=== PATIENT | female | born 1995 | race Caucasian/White ===

== ENCOUNTER 2017-03-28 11:58 | Emergency (ER) | payer BC ==
[2017-03-28 12:06] VITALS: BP 146/88
[2017-03-28] MEDS ORDERED: Ibuprofen 600 MG Tab PO ONE (12:11)
--- NOTE | 2017-03-28 12:18 | EDM.PDOC ---
ED HPI GENERAL MEDICAL PROBLEM - General Chief Complaint: Lower Extremity Injury/Pain Stated Complaint: Right ankle injury Time Seen by Provider: 03/28/17 12:00 Source of Information: Reports: Patient, RN Notes Reviewed History Limitations: Reports: No Limitations - History of Present Illness INITIAL COMMENTS - FREE TEXT/NARRATIVE: 21 year old female presents to the ED with pain and swelling to the right ankle. She says she stepped off a curb and twisted her ankle, causing her to fall down. She has swelling to the lateral aspect of her ankle. She is able to bear some weight but says it's very painful. No numbness, tingling or weakness. No additional injury. Denies possibility of . Right Ankle Pain Score (Numeric/FACES): 8 - Related Data Allergies Allergy/AdvReac Type Severity Reaction Status Date / Time No Known Allergies Allergy Verified 03/28/17 12:06 Home Meds: Home Meds Non-Formulary Medication [NF Drug] 1 tab PO DAILY 03/28/17 [History] Past Medical History - Past Health History Medical/Surgical History: Denies Medical/Surgical History Social & Family History - Tobacco Use Smoking Status *Q: Never Smoker Second Hand Smoke Exposure: No - Caffeine Use Caffeine Use: Reports: Soda - Recreational Drug Use Recreational Drug Use: No Review of Systems - Review of Systems Review Of Systems: See Below Musculoskeletal: Reports: Joint Pain, Joint Swelling Skin: Reports: No Symptoms. Denies: Wound Neurological: Reports: No Symptoms. Denies: Numbness, Tingling ED EXAM, GENERAL - Physical Exam Exam: See Below Exam Limited By: Uncooperative General Appearance: WD/WN, Anxious, Moderate Distress Respiratory/Chest: No Respiratory Distress, Lungs Clear Cardiovascular: Regular Rate, Rhythm Extremities: Other (Small amount of bruising just anterior to the lateral malleolous. She has no bony point tenderness to either malleolous. She has no tenderness to her mid-foot or toes. The pain is mostly just anterior to the lateral malleolous where she is swollen. No obvious deformity. Neurovascular status intact. ) Neurological: Alert, Normal Cognition, No Motor/Sensory Deficits Skin Exam: Warm, Dry, Intact Course - Vital Signs Last Recorded V/S: Last Vital Signs Temp 97.5 F 03/28/17 12:02 Pulse 79 03/28/17 12:02 Resp 18 03/28/17 12:02 BP 146/88 H 03/28/17 12:02 Pulse Ox 98 03/28/17 12:02 - Orders/Labs/Meds Orders: Active Orders 24 hr Category Date Time Status Ankle Min 3V Rt [CR] Stat Exams 03/28/17 12:12 Ordered Meds: Medications Discontinued Medications Generic Name Dose Route Start Last Admin Trade Name Leonor PRN Reason Stop Dose Admin Ibuprofen 600 mg 03/28/17 12:11 03/28/17 12:43 Motrin PO 03/28/17 12:12 600 mg ONETIME ONE Administration - Re-Assessments/Exams Free Text/Narrative Re-Assessment/Exam: X-ray is negative for bony abnormality. There is a bone spur to the posterior aspect of the ankle joint but otherwise no fractures appreciated. Radiologist report is pending. Patient placed in antonina wrap. She has crutches at home. Discharge instructions as documented. Departure - Departure Time of Disposition: 12:58 Disposition: Home, Self-Care 01 Condition: Good Clinical Impression: Ankle sprain Qualifiers: Encounter type: initial encounter Involved ligament of ankle: unspecified ligament Laterality: right Qualified Code(s): S93.401A - Sprain of unspecified ligament of right ankle, initial encounter - Discharge Information Referrals: PCP,Not In Area [Primary Care Provider] - Forms: ED Department Discharge Additional Instructions: Rest, ice and elevate Crutches and antonina wrap as tolerated Weight bearing as tolerated Ibuprofen 600mg every 8 hours as needed for pain Follow-up with Dr. Evans in two weeks if not improved. Call [phone] to schedule - My Orders Last 24 Hours: My Active Orders 03/28/17 12:12 Ankle Min 3V Rt [CR] Stat - Assessment/Plan Last 24 Hours: My Active Orders 03/28/17 12:12 Ankle Min 3V Rt [CR] Stat
--- NOTE | 2017-03-29 10:07 | CR ---
Right ankle: Four views of the right ankle were obtained. Minimal plantar spur is seen. Ankle mortise is symmetric. Slight cortical fragments are seen off the dorsal and anterior talus compatible with small cortical avulsion injury. No additional fracture or other bony abnormality is seen. Impression: 1. Small cortical avulsion fractures off the dorsal and anterior talus. 2. No additional abnormality is noted on right ankle exam. Diagnostic code #3
== END 2017-03-28 13:10 | disposition home or self-care (01) ==
LOC: JD.ED 11:58
DX: S92.151A Displaced avulsion fracture (chip fracture) of right talus, initial encounter for closed fracture (principal); S93.401A Sprain of unspecified ligament of right ankle, initial encounter; X50.0XXA Overexertion from strenuous movement or load, initial encounter
CPT/HCPCS: 73610; 99284; A9270; 99283

== ENCOUNTER 2017-08-29 23:36 | Emergency (ER) | payer BC ==
[2017-08-29 23:46] VITALS: BP 148/88
--- NOTE | 2017-08-30 01:07 | EDM.PDOC ---
ED HPI GENERAL MEDICAL PROBLEM - General Chief Complaint: Lower Extremity Injury/Pain Stated Complaint: INJURED LEFT ANKLE Time Seen by Provider: 08/30/17 00:17 Source of Information: Reports: Patient History Limitations: Reports: No Limitations - History of Present Illness INITIAL COMMENTS - FREE TEXT/NARRATIVE: The patient states that she was going downstairs around 23:10, when she slipped and fell approximately one stair level, injuring the lateral aspect of her left foot. She is otherwise uninjured. No prior left foot injury. The patient's PCP is Maria Ines Brand. Left Ankle Pain Score (Numeric/FACES): 7 - Related Data Allergies Allergy/AdvReac Type Severity Reaction Status Date / Time No Known Allergies Allergy Verified 03/28/17 12:06 Home Meds: Home Meds Non-Formulary Medication [NF Drug] 1 tab PO DAILY 03/28/17 [History] Past Medical History Endocrine/Metabolic History: Reports: Obesity/BMI 30+ Social & Family History - Tobacco Use Smoking Status *Q: Never Smoker Second Hand Smoke Exposure: No - Caffeine Use Caffeine Use: Reports: Coffee - Alcohol Use Alcohol Use History: No - Recreational Drug Use Recreational Drug Use: No - Living Situation & Occupation Living situation: Reports: Single, Other ([employer]) Occupation: Student ([employer]) Review of Systems - Review of Systems Review Of Systems: ROS reveals no pertinent complaints other than HPI. ED EXAM, GENERAL - Physical Exam Exam: See Below Exam Limited By: No Limitations General Appearance: Alert, WD/WN, No Apparent Distress Extremities: Other (Mild swelling to the dorsolateral aspect of the left foot, without ecchymosis, erythema, or abrasion. The area of swelling is tender to palpation. Neurovascular status of the left lower extremity is intact.) Course - Vital Signs Last Recorded V/S: Last Vital Signs Temp 37.2 C 08/29/17 23:43 Pulse 87 08/29/17 23:43 Resp 19 08/29/17 23:43 BP 148/88 H 08/29/17 23:43 Pulse Ox 98 08/29/17 23:43 - Re-Assessments/Exams Free Text/Narrative Re-Assessment/Exam: 08/30/17 01:02 4-view radiographs of the left ankle appear to be normal. No bony injury, such as fracture or dislocation identified. Formal read per the Radiologist pending. Departure - Departure Time of Disposition: 01:02 Disposition: Home, Self-Care 01 Condition: Good Clinical Impression: Contusion of left foot - Discharge Information Referrals: Maria Ines Brand PA [Primary Care Provider] - Forms: ED Department Discharge Additional Instructions: You were seen in the emergency room after slipping while going down stairs and injuring your left foot. Workup in the ER included x-rays of the foot, which are normal. No broken bones are seen. You have contused (bruised) your left foot. Take [id number] Tylenol or ibuprofen as needed for discomfort. Elevate and ice your left foot as much as possible over the next 2 days. If any other problems, please do not hesitate to return to the ER.
--- NOTE | 2017-08-30 07:51 | CR ---
Left ankle: Four views of left ankle were obtained. Comparison: No prior left ankle study. Ankle mortise is symmetric. No fracture, dislocation or other bony abnormality is identified. Impression: 1. No abnormality is identified on left ankle exam. Diagnostic code #1
== END 2017-08-30 01:19 | disposition home or self-care (01) ==
LOC: JD.ED 23:36
DX: S90.32XA Contusion of left foot, initial encounter (principal); Z79.899 Other long term (current) drug therapy; W10.9XXA Fall (on) (from) unspecified stairs and steps, initial encounter
CPT/HCPCS: 73600-26-LT; 73600-LT; 99283

== ENCOUNTER 2017-09-16 20:00 | Emergency (ER) | payer BC ==
[2017-09-16 20:13] VITALS: BP 142/86
[2017-09-16] MEDS ORDERED: Hyoscyamine 0.125 MG Tab.SL SL ONE (20:21)
[2017-09-16] MEDS ORDERED: HYDROmorphone 0.5 MG/0.5 ML SYRINGE IVPUSH ONE (20:21)
[2017-09-16] MEDS ORDERED: Metoclopramide 10 MG/2 ML SDV IVPUSH ONE (20:22)
--- NOTE | 2017-09-16 20:24 | EDM.PDOC ---
ED HPI GENERAL MEDICAL PROBLEM - General Chief Complaint: Abdominal Pain Stated Complaint: BACK AND ABDOMINAL PAINS Time Seen by Provider: 09/16/17 20:17 Source of Information: Reports: Patient History Limitations: Reports: No Limitations - History of Present Illness INITIAL COMMENTS - FREE TEXT/NARRATIVE: 21-year-old female presents to the ED with a 2 hour history of sudden onset of severe epigastric right upper quadrant abdominal pain that radiates through to her right back in between her shoulder blades. Hurts to take a deep breath. Sloppy [employer] and noodles for supper approximate 3 hours ago. Socially nausea without any vomiting. Bowel function was normal yesterday no BM today. No previous abdominal surgery. No previous similar type pain. Due to history of remote renal colic last year. Denies any fever or chills. Pain is described as constant with a mild colicky component. Onset: Today Onset Date: 09/16/17 Onset Time: 18:30 Duration: Minutes: Location: Reports: Abdomen, Radiates to (Epigastrium right upper quadrant of the artery through to her mid back) Quality: Reports: Ache, Pressure, Other (Slight colicky component to the pain) Severity: Severe (Grades the pain as 7 out of 10.) Improves with: Reports: None Worsens with: Reports: None Context: Denies: Activity, Exercise, Lifting, Sick Contact, Trauma, Other Associated Symptoms: Reports: Loss of Appetite, Nausea/Vomiting (Nausea with no vomiting). Denies: No Other Symptoms, Confusion, Chest Pain, cough w sputum, Diaphoresis, Fever/Chills, Headaches, Malaise, Rash, Seizure, Shortness of Breath, Syncope, Weakness Treatments HAND MODEL: Reports: Acetaminophen Abdomen Pain Score (Numeric/FACES): 8 - Related Data Allergies Allergy/AdvReac Type Severity Reaction Status Date / Time No Known Allergies Allergy Verified 03/28/17 12:06 Past Medical History - Past Health History Medical/Surgical History: Denies Medical/Surgical History Endocrine/Metabolic History: Reports: Obesity/BMI 30+ Social & Family History - Tobacco Use Smoking Status *Q: Never Smoker Second Hand Smoke Exposure: No - Caffeine Use Caffeine Use: Reports: Coffee - Recreational Drug Use Recreational Drug Use: No - Living Situation & Occupation Living situation: Reports: Single, Other ([employer]) Occupation: Student ([employer]) ED ROS GENERAL - Review of Systems Review Of Systems: See Below Constitutional: Reports: Decreased Appetite. Denies: Fever, Chills, Malaise, Weakness, Fatigue, Weight Loss HEENT: Reports: No Symptoms Respiratory: Reports: No Symptoms Cardiovascular: Reports: No Symptoms Endocrine: Reports: No Symptoms GI/Abdominal: Reports: Abdominal Pain, Nausea (See history of present illness). Denies: Vomiting Musculoskeletal: Reports: Back Pain Skin: Reports: No Symptoms (Some pain originating the abdomen rating to to her infrascapular area of her mid lower back.) Neurological: Reports: No Symptoms Psychiatric: Reports: No Symptoms Hematologic/Lymphatic: Reports: No Symptoms ED EXAM, GI/ABD - Physical Exam Exam: See Below Exam Limited By: No Limitations General Appearance: Alert, WD/WN, Mild Distress Eyes: Bilateral: Pale Conjunctiva (No jaundice.) Cardiovascular: Normal Peripheral Pulses, Regular Rate, Rhythm, No Edema, No Gallop, No Murmur, No Rub GI/Abdominal Exam: Soft (Twice in bowel sounds throughout.), Tender, Abnormal Bowel Sounds. No: Guarding (Tenderness right upper quadrant. With a positive Calderon sign.), Rigid, Rebound Back Exam: Normal Inspection, Full Range of Motion. No: CVA Tenderness (L), CVA Tenderness (R) Extremities: Normal Inspection, Normal Range of Motion, Non-Tender, No Pedal Edema Neurological: Alert, Oriented, CN II-XII Intact, Normal Cognition, Normal Gait, No Motor/Sensory Deficits Psychiatric: Normal Affect, Normal Mood Skin Exam: Warm, Dry, Intact, Normal Color, No Rash Course - Vital Signs Last Recorded V/S: Last Vital Signs Temp 35.8 C 09/16/17 20:09 Pulse 88 09/16/17 20:09 Resp 18 09/16/17 20:09 BP 142/86 H 09/16/17 20:09 Pulse Ox 100 09/16/17 20:09 - Orders/Labs/Meds Orders: Active Orders 24 hr Category Date Time Status Abdomen 1V Flat [CR] Stat Exams 09/16/17 20:23 Taken Abdomen Pelvis wo Cont [CT] Stat Exams 09/16/17 22:00 Taken URINALYSIS W/MICROSCOPIC [UA W/MICROSCOPIC] [URIN] Stat Lab 09/16/17 21:55 Results Sodium Chloride 0.9% [Normal Saline] 1,000 ml Med 09/16/17 20:30 Active IV ASDIRECTED Medication Orders Sodium Chloride (Normal Saline) 1,000 mls @ 150 mls/hr IV ASDIRECTED ANGELIQUE Last Admin: 09/16/17 20:29 Dose: 150 mls/hr Labs: Laboratory Tests 09/16/17 09/16/17 09/16/17 Range/Units 20:25 20:25 20:25 WBC 16.68 H (3.98-10.04) K/mm3 RBC 4.93 (3.98-5.22) M/mm3 Hgb 13.9 (11.2-15.7) gm/L Hct 41.6 (34.1-44.9) % MCV 84.4 (79.4-94.8) fl MCH 28.2 (25.6-32.2) pg MCHC 33.4 (32.2-35.5) g/dl RDW Std Deviation 37.3 (36.4-46.3) fL Plt Count 370 H (182-369) K/mm3 MPV 9.8 (9.4-12.3) fl Neutrophils % (Manual) 67 H (40-60) % Band Neutrophils % 1 (0-10) % Lymphocytes % (Manual) 27 (20-40) % Atypical Lymphs % 0 % Monocytes % (Manual) 3 (2-10) % Eosinophils % (Manual) 1 (0.7-5.8) % Basophils % (Manual) 1 (0.1-1.2) Platelet Estimate Adequate Plt Morphology Comment Normal RBC Morph Comment Normal Sodium 142 (136-145) mEq/L Potassium 3.8 (3.5-5.1) mEq/L Chloride 106 (98-107) mEq/L Carbon Dioxide 23 (21-32) mEq/L Anion Gap 16.8 H (5-15) BUN 8 (7-18) mg/dL Creatinine 0.8 (0.55-1.02) mg/dL Est Cr Clr Drug Dosing 100.94 mL/min Estimated GFR (MDRD) > 60 (>60) mL/min BUN/Creatinine Ratio 10.0 L (14-18) Glucose 119 H (74-106) mg/dL Calcium 8.8 (8.5-10.1) mg/dL Total Bilirubin 0.3 (0.2-1.0) mg/dL AST 45 H (15-37) U/L ALT 67 H (14-59) U/L Alkaline Phosphatase 65 (46-116) U/L C-Reactive Protein 1.0 (<1.0) mg/dL Total Protein 7.2 (6.4-8.2) g/dl Albumin 3.6 (3.4-5.0) g/dl Globulin 3.6 gm/dL Albumin/Globulin Ratio 1.0 (1-2) Amylase 32 (25-115) U/L HCG, Qual Negative (NEGATIVE) Urine Color (Yellow) Urine Appearance (Clear) Urine pH (5.0-8.0) Ur Specific [place] (1.005-1.030) Urine Protein (Negative) Urine Glucose (UA) (Negative) Urine Ketones (Negative) Urine Occult Blood (Negative) Urine Nitrite (Negative) Urine Bilirubin (Negative) Urine Urobilinogen (0.2-1.0) Ur Leukocyte Esterase (Negative) 09/16/17 Range/Units 21:55 WBC (3.98-10.04) K/mm3 RBC (3.98-5.22) M/mm3 Hgb (11.2-15.7) gm/L Hct (34.1-44.9) % MCV (79.4-94.8) fl MCH (25.6-32.2) pg MCHC (32.2-35.5) g/dl RDW Std Deviation (36.4-46.3) fL Plt Count (182-369) K/mm3 MPV (9.4-12.3) fl Neutrophils % (Manual) (40-60) % Band Neutrophils % (0-10) % Lymphocytes % (Manual) (20-40) % Atypical Lymphs % % Monocytes % (Manual) (2-10) % Eosinophils % (Manual) (0.7-5.8) % Basophils % (Manual) (0.1-1.2) Platelet Estimate Plt Morphology Comment RBC Morph Comment Sodium (136-145) mEq/L Potassium (3.5-5.1) mEq/L Chloride (98-107) mEq/L Carbon Dioxide (21-32) mEq/L Anion Gap (5-15) BUN (7-18) mg/dL Creatinine (0.55-1.02) mg/dL Est Cr Clr Drug Dosing mL/min Estimated GFR (MDRD) (>60) mL/min BUN/Creatinine Ratio (14-18) Glucose (74-106) mg/dL Calcium (8.5-10.1) mg/dL Total Bilirubin (0.2-1.0) mg/dL AST (15-37) U/L ALT (14-59) U/L Alkaline Phosphatase (46-116) U/L C-Reactive Protein (<1.0) mg/dL Total Protein (6.4-8.2) g/dl Albumin (3.4-5.0) g/dl Globulin gm/dL Albumin/Globulin Ratio (1-2) Amylase (25-115) U/L HCG, Qual (NEGATIVE) Urine Color Yellow (Yellow) Urine Appearance Clear (Clear) Urine pH 6.5 (5.0-8.0) Ur Specific [place] > or = 1.030 (1.005-1.030) Urine Protein 1+ H (Negative) Urine Glucose (UA) Negative (Negative) Urine Ketones Trace H (Negative) Urine Occult Blood 1+ H (Negative) Urine Nitrite Negative (Negative) Urine Bilirubin Negative (Negative) Urine Urobilinogen 0.2 (0.2-1.0) Ur Leukocyte Esterase Negative (Negative) Meds: Medications Generic Name Dose Route Start Last Admin Trade Name Freq PRN Reason Stop Dose Admin Sodium Chloride 1,000 mls @ 150 mls/hr 09/16/17 20:30 09/16/17 20:29 Normal Saline IV 150 mls/hr ASDIRECTED ANGELIQUE Administration Discontinued Medications Generic Name Dose Route Start Last Admin Trade Name Leonor PRN Reason Stop Dose Admin Hydromorphone HCl 0.5 mg 09/16/17 20:21 09/16/17 20:32 Dilaudid IVPUSH 09/16/17 20:22 0.5 mg ONETIME ONE Administration Hyoscyamine 0.125 mg 09/16/17 20:21 09/16/17 20:30 Hyomax-Sl SL 09/16/17 20:22 0.125 mg ONETIME ONE Administration Magnesium Citrate 240 ml 09/16/17 21:52 09/16/17 22:04 Citrate Of Magnesia PO 09/16/17 21:53 240 ml ONETIME ONE Administration Metoclopramide HCl 10 mg 09/16/17 20:22 09/16/17 20:30 Reglan IVPUSH 09/16/17 20:23 10 mg ONETIME ONE Administration - Radiology Interpretation Free Text/Narrative:: 21-year-old female presents the ED with a 2 hour history of early sudden onset epigastric right upper quadrant abdominal pain that radiates through to her infrascapular are back. Does hurt to take a deep breath. Pain is constant with these slight colicky component. No previous similar type pains. She doesn't have any history of gallstones. Has a history of renal stones in the past. Examination reveals tenderness right upper quadrant abdomen with a positive Calderon's sign suggestive of gallbladder disease. Plan Levsin 0.125 mg sublingual. IV will be established normal saline at 150 mils per hour. Given Dilaudid 0.5 mg IV with Reglan 10 mg IV for nausea relief. KUB to be done. Routine labs to include a serum amylase. Urinalysis when one becomes available. - Re-Assessments/Exams Free Text/Narrative Re-Assessment/Exam: 09/16/17 21:12 patient reports pain is markedly improved. Labs are still pending and she has not gone to x-ray yet. 09/16/17 21:27 Total white count is 16.68 with a minimal left shift of 67% neutrophils 1% bands reported. Hemoglobin is 13.9 with hematocrit of 41.6. Chemistry is normal other than a mildly elevated anion gap at 16.8. BUN is 8 with a creatinine of 0.8. Glucose is 119. AST is 45 ALT is 67 bilirubin 0.3 alkaline phosphatase normal at 65. C-reactive protein is 1.08 hCG was negative. She will be going to x-ray shortly. 09/16/17 21:42 KUB reveals a large amount of stool throughout the entire right hemicolon and portions of the initial transverse colon compatible with constipation. This is the most likely etiology of her pain. Labs showed no light on any other etiology other than an elevated white count which is felt to be a stress response. She has not yet voided. 09/16/17 22:01 analysis shows 3+ RBCs. I will therefore have CT of the abdomen and pelvis performed per renal protocol to rule out a kidney stone at the UPJ. Repeat examination reveals very quiet sent bile sounds. Tenderness in the right upper quadrant has now resolved. 09/16/17 22:30 CT scan of the abdomen has been completed. It reveals no evidence of any renal stones in the renal parenchyma or any obstructing stones in the ureters. Gallbladder also appears to be healthy without stones. The pancreas and spleen appear to be within normal limits. Again large amount of stool is appreciated throughout the right hemicolon and the first half of the transverse colon which appears to be the cause of her pain. Uterus and ovaries are easily visible visible and are normal she will therefore be discharged home on Citroma using 8 ounces by mouth with 4 ounces of juice of choice once to provide bowel cleanse either take it when she gets home or when she wakes up later tomorrow morning. Departure - Departure Time of Disposition: 22:31 Disposition: Home, Self-Care 01 Condition: Fair Clinical Impression: Constipation by delayed colonic transit Abdominal pain Qualifiers: Abdominal location: right upper quadrant Qualified Code(s): R10.11 - Right upper quadrant pain - Discharge Information Referrals: Maria Ines Brand PA [Primary Care Provider] - Forms: ED Department Discharge Additional Instructions: Evaluation the emergent today in regards to sudden onset of severe right upper quadrant abdominal pain associated with nausea without vomiting. This occurred within a few hours of eating supper. Pain is described as constant with intermittent colicky component and radiated through to her mid back. Examination revealed bowel sounds to be fairly quiet sent. Tenderness was localized to the right upper quadrant suggesting possible gallbladder attack. You're given Levsin 0.125 mg under the tongue to see if fluid alleviate the discomfort and it did help perhaps some. Subtotal you're given intravenous Dilaudid and Reglan to ease pain and nausea. Lab tests performed were all within normal limits. The urinalysis eventually did reveal 3+ blood in the urine however. The suggested the possibility of recurrence of kidney stone. X- ray of the abdomen revealed increased stool throughout the right hemicolon and the first half of the transverse colon in the right upper quadrant. CT of the abdomen was performed and this does not show any evidence of gallstones or stones within the kidney tissues or obstructing stones in the drainage tubes from the kidneys. He does confirm a large amount of stool throughout the right hemicolon and right upper transverse colon across her upper abdomen. Was therefore constipation is occurred likely from taking narcotics last week when you had 2 wisdom teeth out. Treatment is therefore magnesium citrate or Citroma 8 ounces by mouth mixed with 4-5 ounces of juice of choice by mouth once. Should be followed by 8-12 ounces of water or other juices in the next hour. Bowels will usually start work in 1-2 hours and will offer him work through 4 times ending with some degree of diarrhea. This should alleviate your pain completely. Still present return to medical care for further evaluation. - My Orders Last 24 Hours: My Active Orders 09/16/17 20:23 Abdomen 1V Flat [CR] Stat 09/16/17 20:30 Sodium Chloride 0.9% [Normal Saline] 1,000 ml IV ASDIRECTED 09/16/17 21:55 URINALYSIS W/MICROSCOPIC [UA W/MICROSCOPIC] [URIN] Stat 09/16/17 22:00 Abdomen Pelvis wo Cont [CT] Stat - Assessment/Plan Last 24 Hours: My Active Orders 09/16/17 20:23 Abdomen 1V Flat [CR] Stat 09/16/17 20:30 Sodium Chloride 0.9% [Normal Saline] 1,000 ml IV ASDIRECTED 09/16/17 21:55 URINALYSIS W/MICROSCOPIC [UA W/MICROSCOPIC] [URIN] Stat 09/16/17 22:00 Abdomen Pelvis wo Cont [CT] Stat
[2017-09-16] MEDS ORDERED: Sodium Chloride 0.9% 1,000 ML IV SCH (20:30)
[2017-09-16] MEDS ORDERED: Magnesium Citrate Solution 296 ML Bottle PO ONE (21:52)
--- NOTE | 2017-09-17 07:26 | CR ---
Abdomen: Supine view of the abdomen was obtained. Comparison: No prior abdominal x-ray. Bowel gas pattern appears normal. No abnormal calcifications or soft tissue abnormality is seen. Bony structures are unremarkable. Impression: 1. No abnormality is identified on supine abdominal x-ray. Diagnostic code #1
--- NOTE | 2017-09-17 07:26 | CT ---
CT abdomen and pelvis Technique: Multiple axial sections were obtained from above the dome of the diaphragm inferiorly through the pubic symphysis. Intravenous and oral contrast was not utilized. Study has been performed as a ureteral stone protocol. Comparison: No prior CT abdomen or pelvis exam is available. Findings: Kidneys show no abnormal calcifications. No hydronephrosis is seen. No abnormal calcifications are seen along the course of the ureters. Visualized lung bases show nothing acute. Noncontrast appearance of the liver and spleen shows no discrete abnormality. Gallbladder contains no calcified gallstones. Pancreas is within normal limits. Adrenal glands show no nodule. Aorta shows no aneurysmal dilatation. No retroperitoneal adenopathy or mesenteric abnormalities are seen. Appendix is seen which appears normal. No pelvic mass or adenopathy is identified. No free fluid or inflammatory change is seen. Bone window settings were reviewed which appear within normal limits for the patient's age. Impression: 1. No renal calculi, ureteral dilatation or ureteral stone is seen. 2. Other portions of the noncontrast CT study of the abdomen and pelvis performed as a ureteral stone protocol appear unremarkable. Diagnostic code #1 Agree with preliminary report issued by [facility] ([facility] preliminary report dictated on 09/16/17, 11:48 PM Central Time)
== END 2017-09-16 22:35 | disposition home or self-care (01) ==
LOC: JD.ED 20:00
DX: K59.01 Slow transit constipation (principal)
CPT/HCPCS: 36415; 74018; 74176; 80053; 81001; 82150; 84703; 85025; 86140; 96361; 96374; 96375; 99285; A9270; J1170; J2765; J7040; 99284

== ENCOUNTER 2019-06-13 10:04 | Emergency (ER) | payer BC ==
[2019-06-13 10:15] VITALS: BP 136/86; PULSE 85
--- NOTE | 2019-06-13 10:28 | EDM.PDOC ---
ED HPI GENERAL MEDICAL PROBLEM - General Chief Complaint: Upper Extremity Injury/Pain Stated Complaint: RT INDEX FINGER Time Seen by Provider: 06/13/19 10:24 Source of Information: Reports: Patient History Limitations: Reports: No Limitations - History of Present Illness INITIAL COMMENTS - FREE TEXT/NARRATIVE: 23-year-old female attends the ED with an acute injury to her right hand. She states that Mukesh yesterday afternoon and punched a wall. Complains of pain persisting in the second MCP joint and inability to make a fist or close her hand. The hand dominant. Denies any other injuries. Denies any possibility of . Onset: Sudden Onset Date: 06/12/19 Onset Time: 14:30 Duration: Hour(s): Location: Reports: Upper Extremity, Right (Rt hand.) Quality: Reports: Ache Severity: Moderate Improves with: Reports: Rest Worsens with: Reports: Movement Context: Reports: Trauma. Denies: Activity, Exercise, Lifting, Sick Contact Associated Symptoms: Reports: No Other Symptoms (Blunt trauma when she punched a wall at home.) Treatments DAY CARE AIDE: Reports: Acetaminophen Right Hand Pain Score (Numeric/FACES): 6 - Related Data Allergies Allergy/AdvReac Type Severity Reaction Status Date / Time No Known Allergies Allergy Verified 06/13/19 10:14 Home Meds: Home Meds . [No Known Home Meds] 06/13/19 [History] Past Medical History - Past Health History Medical/Surgical History: Denies Medical/Surgical History HEENT History: Reports: Impaired Vision Genitourinary History: Reports: Renal Calculus Musculoskeletal History: Reports: Fracture Other Musculoskeletal History: right pinky toe Psychiatric History: Reports: Other (See Below) Other Psychiatric History: asbergers Endocrine/Metabolic History: Reports: Obesity/BMI 30+, Other (See Below) Other Endocrine/Metabolic History: "pre diabetes" Social & Family History - Family History Family Medical History: Noncontributory - Tobacco Use Smoking Status *Q: Never Smoker - Caffeine Use Caffeine Use: Reports: Coffee - Living Situation & Occupation Living situation: Reports: Single, Other ([employer]) Occupation: Student ([employer]) Review of Systems - Review of Systems Review Of Systems: See Below Constitutional: Reports: No Symptoms Eyes: Reports: No Symptoms Ears: Reports: No Symptoms Nose: Reports: No Symptoms Mouth/Throat: Reports: No Symptoms Respiratory: Reports: No Symptoms Cardiovascular: Reports: No Symptoms GI/Abdominal: Reports: No Symptoms Genitourinary: Reports: No Symptoms Skin: Reports: No Symptoms Neurological: Reports: No Symptoms Psychiatric: Reports: No Symptoms ED EXAM, GENERAL - Physical Exam Exam: See Below Exam Limited By: No Limitations General Appearance: Alert, WD/WN, No Apparent Distress, Other Extremities: Other (Examination was limited to the right hand. She does have some swelling over the second MCP joint and the dorsal aspect of the hand in the distribution of the second and third metacarpals. He does not have the ability to close her hand to make a fist.) Neurological: Alert, Oriented, CN II-XII Intact, Normal Cognition, Normal Gait Psychiatric: Normal Affect, Normal Mood Skin Exam: Warm, Dry, Intact, Normal Color, No Rash ED TRAUMA EXTREMITY PROCEDURES - Splinting Right Upper Extremity Splint Site: Short arm Ortho-Glass splint applied to the right side due to fracture of t Pre-Procedure NV Status: Normal Post-Procedure NV Status: Normal Splint Material: Fiberglass Splint Design: Gutter (Radial gutter splint), Other Provider Post-Splint Application NV Check: NV Status Normal Complications: No Course - Vital Signs Last Recorded V/S: Last Vital Signs Temp 36.9 C 06/13/19 10:13 Pulse 85 06/13/19 10:13 Resp 10 L 06/13/19 10:13 BP 136/86 06/13/19 10:13 Pulse Ox 97 06/13/19 10:13 - Orders/Labs/Meds Orders: Active Orders 24 hr Category Date Time Status Hand Comp Min 3V Rt [CR] Stat Exams 06/13/19 10:24 Taken - Radiology Interpretation Free Text/Narrative:: 23-year-old female attends the ED with injury to her right hand after punching a wall yesterday afternoon. Complains of pain primarily in the distribution of the second MCP joint. There is swelling in the MCP joint as well as dorsal aspect of the hand over the second and third metacarpals. She has inability to close her hand or make a fist. Plan x-rays of the right hand to be done. - Re-Assessments/Exams Free Text/Narrative Re-Assessment/Exam: 06/13/19 10:50: X-rays of the right hand reveals a comminuted fracture of the head of the second metacarpal right hand. Position is normal. She will require splinting with an Ortho-Glass splint. 06/13/19 11:08 right second and third fingers were amrit taped together with padding in between the fingers. A radial gutter Ortho-Glass splint was placed on the right hand short arm to maintain immobilization of the fracture for the next 5-6 weeks. Motrin 600 mg every 6 hours needed for pain relief. Departure - Departure Time of Disposition: 11:08 Disposition: Home, Self-Care 01 Condition: Fair Clinical Impression: Fracture of second metacarpal bone of right hand Qualifiers: Encounter type: initial encounter Fracture type: closed Metacarpal location: other portion of metacarpal Fracture of metacarpal bone Qualifiers: Encounter type: initial encounter Metacarpal bone: second - Discharge Information *PRESCRIPTION DRUG MONITORING PROGRAM REVIEWED*: Not Applicable *COPY OF PRESCRIPTION DRUG MONITORING REPORT IN PATIENT NIDIA: Not Applicable Instructions: Cast or Splint Care, Adult, [id number] Referrals: Maria Ines Brand PA [Primary Care Provider] - Forms: ED Department Discharge Additional Instructions: Evaluation the emergency room today in regards to blunt force trauma to the right hand that occurred yesterday afternoon when he punched a wall. X-rays confirm a fracture of the head of the right second metacarpal bone rate were you 're having your pain. Therefore the fracture was immobilized by splinting the second and third fingers together and application of an Ortho-Glass splint to maintain position of this fracture until it can heal over the next 5-6 weeks. You could follow-up with your primary care physician in approximately 5 weeks' time to have the splint removed. Elevate the hand at heart level is much as possible today and tomorrow. Ice pack to the area one half out of every 4 hours today. Motrin 600 mg every 6 hours needed for pain relief. - My Orders Last 24 Hours: My Active Orders 06/13/19 10:24 Hand Comp Min 3V Rt [CR] Stat - Assessment/Plan Last 24 Hours: My Active Orders 06/13/19 10:24 Hand Comp Min 3V Rt [CR] Stat
--- NOTE | 2019-06-16 12:30 | CR ---
Right hand: Four views of the right hand were obtained. Comparison: No prior right hand exam is available. Findings: Joint spaces are preserved. Fracture is identified within the head of the distal second finger. Articular extension is seen into the MCP joint. Alignment remains anatomic. No additional fracture or other bony abnormality is seen. Impression: 1. Nondisplaced fracture involving the head of the distal second metacarpal. 2. No additional abnormality is seen. Diagnostic code #3 This report was dictated in Mountain Standard Time
== END 2019-06-13 11:16 | disposition home or self-care (01) ==
LOC: JD.ED 10:04
DX: S62.300A Unspecified fracture of second metacarpal bone, right hand, initial encounter for closed fracture (principal); E66.9 Obesity, unspecified; Z68.41 Body mass index [BMI] 40.0-44.9, adult; W22.01XA Walked into wall, initial encounter
CPT/HCPCS: 29125; 73130-26-RT; 73130-RT; 99283; 99283-25

== ENCOUNTER 2020-05-21 04:38 | Inpatient (IN) | payer BC ==
--- NOTE | 2020-05-21 05:31 | EDM.PDOC ---
ED HPI GENERAL MEDICAL PROBLEM - General Chief Complaint: Respiratory Problem Stated Complaint: SOB/CHEST PAIN Time Seen by Provider: 05/21/20 04:50 Source of Information: Reports: Patient History Limitations: Reports: No Limitations - History of Present Illness INITIAL COMMENTS - FREE TEXT/NARRATIVE: Mrs. Carrera is a very pleasant 24-year-old woman who now presents the ED with complications of COVID-19. She states that she developed a fever on , 05/12/2020, then a frontal headache, nonproductive cough, and sore throat on 05/13/2020. She has been experiencing central chest pain when she hiccups. She was tested for the SARS-CoV-2 virus on 05/14/2020, receiving a positive result on 05/17/2020. She then developed dyspnea, primarily with exertion, but even some at rest, this past , 05/19/2020. She has had some nausea, but no recent vomiting, constipation, diarrhea, or urinary symptoms. The patient states that she has been taking [id number] Robitussin, DayQuil, NyQuil, and Delsym, without any significant relief of her symptoms. Here in the ED, the patient is initially found to be mildly tachycardic at 102 bpm and tachypneic at 32 rpm. She is afebrile, saturating 75% on room air, 88% on 3 L of oxygen per nasal cannula. Prior to 05/12/2020, the patient denies having a recent fever, chills, sore throat, ear pain, nasal or sinus congestion, cough, dyspnea, chest pain, palpitations, nausea, vomiting, constipation, diarrhea, abdominal pain, urinary symptoms, recent weight gain or weight loss, recent bloody bowel movements or black bowel movements, recent joint aches, headaches, or rashes. The patient's PCP is Flory Malhotra. She did not receive an influenza vaccine this season. Headache Pain Score (Numeric/FACES): 5 - Related Data Allergies Allergy/AdvReac Type Severity Reaction Status Date / Time No Known Allergies Allergy Verified 05/21/20 04:53 Home Meds: Home Meds . [No Known Home Meds] 06/13/19 [History] Past Medical History HEENT History: Reports: Impaired Vision Musculoskeletal History: Reports: Fracture (right 5th toe) Neurological History: Reports: Other (See Below) (Asperger disorder) Endocrine/Metabolic History: Reports: Obesity/BMI 30+, Other (See Below) (Prediabetes) - Infectious Disease History Infectious Disease History: Reports: Novel Coronavirus (dx'd 05/14/2020) - Past Surgical History HEENT Surgical History: Reports: Oral Surgery (dental extractions) Musculoskeletal Surgical History: Reports: ORIF (left hand) Social & Family History - Family History Family Medical History: Noncontributory - Tobacco Use Tobacco Use Status *Q: Never Tobacco User Second Hand Smoke Exposure: No - Caffeine Use Caffeine Use: Reports: Soda - Alcohol Use Alcohol Use History: No - Recreational Drug Use Recreational Drug Use: No - Living Situation & Occupation Living situation: Reports: , with Spouse Occupation: Unemployed ED ROS GENERAL - Review of Systems Review Of Systems: Comprehensive ROS is negative, except as noted in HPI. ED EXAM, GENERAL - Physical Exam Exam: See Below Exam Limited By: No Limitations General Appearance: Alert, WD/WN, No Apparent Distress Eye Exam: Bilateral Eye: EOMI, Normal Inspection Ears: Normal External Exam, Hearing Grossly Normal Nose: Normal Inspection Throat/Mouth: Normal Inspection, Normal Lips, Normal Voice, No Airway Compromise Head: Atraumatic, Normocephalic Neck: Normal Inspection, Full Range of Motion Respiratory/Chest: No Respiratory Distress, Lungs Clear, Normal Breath Sounds, No Accessory Muscle Use, Decreased Breath Sounds (slight). No: Crackles, Rhonchi, Wheezing, Stridor, Prolonged Expiration Cardiovascular: Normal Peripheral Pulses, No Gallop, No JVD, No Murmur, No Rub, Tachycardia (regular) Peripheral Pulses: 3+: Radial (L), Radial (R) GI/Abdominal: Normal Bowel Sounds, Soft, Non-Tender, No Organomegaly, No Distention, No Abnormal Bruit, No Mass Back Exam: Normal Inspection, Full Range of Motion, NT Extremities: Normal Inspection, Normal Range of Motion, Normal Capillary Refill Neurological: Alert, Oriented, Normal Cognition, No Motor/Sensory Deficits Psychiatric: Normal Affect Skin Exam: Warm, Dry, Intact, Normal Color, No Rash #1 Interpretation EKG Date: 05/21/20 Time: 05:01 Rhythm: NSR Rate (Beats/Min): 98 [place]: Normal P-Wave: Present QRS: Normal ST-T: Normal QT: Normal Comparison: NA - No Prior EKG Course - Vital Signs Last Recorded V/S: Last Vital Signs Temp 36.6 C 05/21/20 09:05 Pulse 86 05/21/20 09:05 Resp 32 H 05/21/20 09:05 BP 108/66 05/21/20 09:05 Pulse Ox 88 L 05/21/20 09:05 - Orders/Labs/Meds Orders: Active Orders 24 hr Category Date Time Status EKG Documentation Completion [RC] STAT Care 05/21/20 05:15 Active Verify Patient Consent Obtain [RC] ASDIRECTED Care 05/21/20 06:36 Active Ang Chest [CT] Stat Exams 05/21/20 06:48 Taken Chest 2V [CR] Stat Exams 05/21/20 05:14 Taken ABO/RH TYPE [BBK] Stat Lab 05/21/20 05:38 Results CULTURE BLOOD [BC] Stat Lab 05/21/20 05:30 Received CULTURE BLOOD [BC] Stat Lab 05/21/20 05:30 Received FRESH FROZEN PLASMA [BBK] Stat Lab 05/21/20 05:38 Results Remdesivir (Eua) [Remdesivir (EUA)] 200 mg Med 05/21/20 09:00 Active Sodium Chloride 0.9% [Normal Saline] 250 ml IV ONETIME Sodium Chloride 0.9% [Normal Saline] 1,000 ml Med 05/21/20 07:00 Active IV ASDIRECTED Sodium Chloride 0.9% [Normal Saline] 45 ml Med 05/21/20 07:15 Active IV ASDIRECTED Sodium Chloride 0.9% [Saline Flush] Med 05/21/20 07:06 Active 10 ml FLUSH ONETIME PRN Blood Culture x2 Reflex Set [OM.PC] Stat Oth 05/21/20 05:16 Ordered Isolation [COMM] Routine Oth 05/21/20 05:16 Ordered Transfuse Fresh Frozen Plasma [COMM] Routine Oth 05/21/20 06:36 Ordered Transfuse Fresh Frozen Plasma [COMM] Stat Oth 05/21/20 05:17 Ordered Transfuse Fresh Frozen Plasma [COMM] Stat Oth 05/21/20 05:17 Ordered Medication Orders Sodium Chloride (Normal Saline) 1,000 mls @ 75 mls/hr IV ASDIRECTED [facility] Last Admin: 11/07/20 07:50 Dose: 75 mls/hr Documented by: CURT Sodium Chloride (Normal Saline) 45 mls @ 40 mls/hr IV ASDIRECTED ANGELIQUE Last Admin: 05/21/20 07:41 Dose: 40 mls/hr Documented by: TEJ Remdesivir 200 mg/ Sodium (Chloride) 250 mls @ 250 mls/hr IV ONETIME ONE Stop: 05/21/20 09:59 Last Admin: 05/21/20 09:05 Dose: 250 mls/hr Documented by: CURT Sodium Chloride (Saline Flush) 10 ml FLUSH ONETIME PRN PRN Reason: Keep Vein Open Last Admin: 05/21/20 07:41 Dose: 10 ml Documented by: TEJ Labs: Laboratory Tests 05/21/20 05/21/20 05/21/20 Range/Units 05:32 05:38 05:38 WBC 6.39 (3.98-10.04) K/mm3 RBC 4.74 (3.98-5.22) M/mm3 Hgb 13.2 (11.2-15.7) gm/dl Hct 41.2 (34.1-44.9) % MCV 86.9 (79.4-94.8) fl MCH 27.8 (25.6-32.2) pg MCHC 32.0 L (32.2-35.5) g/dl RDW Std Deviation 42.4 (36.4-46.3) fL Plt Count 304 D (182-369) K/mm3 MPV 9.0 L (9.4-12.3) fl Neutrophils % (Manual) 88 H (40-60) % Band Neutrophils % 0 (0-10) % Lymphocytes % (Manual) 12 L (20-40) % Atypical Lymphs % 0 % Monocytes % (Manual) 0 L (2-10) % Eosinophils % (Manual) 0 L (0.7-5.8) % Basophils % (Manual) 0 L (0.1-1.2) Platelet Estimate Adequate RBC Morph Comment Normal D-Dimer, Quantitative (0.19-0.50) mg/L Puncture Site ABG pH (7.35-7.45) ABG pCO2 (35.0-45.0) mmHg ABG pO2 (80.0-100.0) mmHg ABG HCO3 (22.0-26.0) meq/L ABG O2 Saturation (96.0-97.0) % ABG Base Excess (-2-2.0) Ambrosio Test A-a Gradient mmHg O2 Delivery Device Oxygen Flow Rate FiO2 (21.00-100.00) % Sodium 140 (136-145) mEq/L Potassium 3.6 (3.5-5.1) mEq/L Chloride 102 (98-107) mEq/L Carbon Dioxide 25 (21-32) mEq/L Anion Gap 16.6 H (5-15) BUN 8 (7-18) mg/dL Creatinine 0.8 (0.55-1.02) mg/dL Est Cr Clr Drug Dosing 98.41 mL/min Estimated GFR (MDRD) > 60 (>60) mL/min BUN/Creatinine Ratio 10.0 L (14-18) Glucose 162 H (74-106) mg/dL Lactic Acid 0.8 (0.4-2.0) mmol/L Calcium 8.2 L (8.5-10.1) mg/dL Magnesium 1.9 (1.8-2.4) mg/dl Total Bilirubin 0.4 (0.2-1.0) mg/dL AST 26 (15-37) U/L ALT 30 (14-59) U/L Alkaline Phosphatase 35 L (46-116) U/L Troponin I < 0.017 (0.00-0.056) ng/mL Total Protein 7.1 (6.4-8.2) g/dl Albumin 3.0 L (3.4-5.0) g/dl Globulin 4.1 gm/dL Albumin/Globulin Ratio 0.7 L (1-2) Blood Type 05/21/20 05/21/20 05/21/20 Range/Units 05:38 05:38 05:50 WBC (3.98-10.04) K/mm3 RBC (3.98-5.22) M/mm3 Hgb (11.2-15.7) gm/dl Hct (34.1-44.9) % MCV (79.4-94.8) fl MCH (25.6-32.2) pg MCHC (32.2-35.5) g/dl RDW Std Deviation (36.4-46.3) fL Plt Count (182-369) K/mm3 MPV (9.4-12.3) fl Neutrophils % (Manual) (40-60) % Band Neutrophils % (0-10) % Lymphocytes % (Manual) (20-40) % Atypical Lymphs % % Monocytes % (Manual) (2-10) % Eosinophils % (Manual) (0.7-5.8) % Basophils % (Manual) (0.1-1.2) Platelet Estimate RBC Morph Comment D-Dimer, Quantitative 1.04 H (0.19-0.50) mg/L Puncture Site Rt radial ABG pH 7.42 (7.35-7.45) ABG pCO2 39.7 (35.0-45.0) mmHg ABG pO2 60.0 L (80.0-100.0) mmHg ABG HCO3 25.4 (22.0-26.0) meq/L ABG O2 Saturation 89.5 L (96.0-97.0) % ABG Base Excess 1.4 (-2-2.0) Ambrosio Test Positive A-a Gradient 119 mmHg O2 Delivery Device Nasal cannula Oxygen Flow Rate 3.0 FiO2 32.00 (21.00-100.00) % Sodium (136-145) mEq/L Potassium (3.5-5.1) mEq/L Chloride (98-107) mEq/L Carbon Dioxide (21-32) mEq/L Anion Gap (5-15) BUN (7-18) mg/dL Creatinine (0.55-1.02) mg/dL Est Cr Clr Drug Dosing mL/min Estimated GFR (MDRD) (>60) mL/min BUN/Creatinine Ratio (14-18) Glucose (74-106) mg/dL Lactic Acid (0.4-2.0) mmol/L Calcium (8.5-10.1) mg/dL Magnesium (1.8-2.4) mg/dl Total Bilirubin (0.2-1.0) mg/dL AST (15-37) U/L ALT (14-59) U/L Alkaline Phosphatase (46-116) U/L Troponin I (0.00-0.056) ng/mL Total Protein (6.4-8.2) g/dl Albumin (3.4-5.0) g/dl Globulin gm/dL Albumin/Globulin Ratio (1-2) Blood Type B POSITIVE Meds: Medications Generic Name Dose Route Start Last Admin Trade Name Freq PRN Reason Stop Dose Admin Sodium Chloride 1,000 mls @ 75 mls/hr 05/21/20 07:00 05/21/20 07:50 Normal Saline IV 75 mls/hr ASDIRECTED ANGELIQUE Administration Sodium Chloride 45 mls @ 40 mls/hr 05/21/20 07:15 05/21/20 07:41 Normal Saline IV 40 mls/hr ASDIRECTED ANGELIQUE Administration Remdesivir 200 mg/ Sodium 250 mls @ 250 mls/hr 05/21/20 09:00 05/21/20 09:05 Chloride IV 05/21/20 09:59 250 mls/hr ONETIME ONE Administration Sodium Chloride 10 ml 05/21/20 07:06 05/21/20 07:41 Saline Flush FLUSH 10 ml ONETIME PRN Administration Keep Vein Open Discontinued Medications Generic Name Dose Route Start Last Admin Trade Name Elginq PRN Reason Stop Dose Admin Dexamethasone 6 mg 05/21/20 06:49 05/21/20 07:17 Dexamethasone IV 05/21/20 06:50 6 mg ONETIME STA Administration Iopamidol 100 ml 05/21/20 07:06 05/21/20 07:41 Isovue-300 (61%) IVPUSH 05/21/20 07:07 Not Given ONETIME ONE Iopamidol 100 ml 05/21/20 07:42 05/21/20 07:44 Isovue-370 (76%) IVPUSH 05/21/20 07:43 100 ml ONETIME ONE Administration Rivaroxaban 15 mg 05/21/20 08:23 05/21/20 08:36 Xarelto PO 05/21/20 08:24 15 mg ONETIME STA Administration - Re-Assessments/Exams Free Text/Narrative Re-Assessment/Exam: 05/21/20 05:21 As above, the patient developed a fever on , 05/11/2020, followed by a nonproductive cough, sore throat, and frontal headache on 05/13/2020, then tested positive for the SARS-CoV-2 virus on 05/14/2020. She has been experiencing central chest pain when she hiccups, and has had dyspnea, even at rest, since , 05/19/2020. Here in the ED, she is tachypneic, tachycardic, and significantly hypoxemic, with an SpO2 75% on room air, 88% on 3 L of oxygen per nasal cannula. An ECG obtained at triage is unremarkable. Her physical exam is unremarkable. I have ordered a work-up that includes blood work, an ABG, 2 sets of blood cultures, an influenza swab, and a chest x-ray. I have ordered 2 units of convalescent plasma. Provided the patient's renal function is reasonable, I will start her on remdesivir, and provided her blood glucose is not too high, she will also be started on dexamethasone. 05/21/20 06:50 The patient's CBC is unremarkable. Her CMP is remarkable for an anion gap slightly elevated at 16.6, but with a bicarbonate normal at 25, and a blood glucose elevated at 162, with the remainder of her CMP being unremarkable. Her magnesium level is within normal limits at 1.9. Her lactic acid level is within normal limits at 0.8. Her troponin is undetectably low. Her D-dimer is elevated at 1.04. Her ABG represents a combined primary respiratory alkalosis and metabolic alkalosis. Her influenza swab returned negative. Based on the above, I have ordered a CT angiogram of the chest to rule out a PE. The patient will be given judicious IV fluid. Because her renal function is normal and she does not have excessive hyperglycemia, I have ordered 200 mg of IV remdesivir and 6 mg of IV dexamethasone. 05/21/20 07:39 2-view chest radiograph is read by [facility] as "Patchy bilateral opacities may reflect multifocal pneumonia. ." 05/21/20 08:04 CT angiogram of the chest is read by [facility] as: 1. Non occluding pulmonary embolus: Non occluding filling defect at the bifurcation of the branch to the right middle lobe and right descending pulmonary artery. It measures 18 x 11 mm. Series 5, image [id number]. 2. No aneurysm of the aorta. 3. No dissection of the aorta. 4. Patchy bilateral opacities may represent multifocal pneumonia. 05/21/20 08:[address] Knight. She accepted the patient for admission to the Med-Surg unit, although a bed may not be available until early this afternoon. She does not have any particular preference as to which anticoagulant we start the patient on. I have ordered Xarelto. 05/21/20 08:28 The above plan for admission was discussed with the patient. She is agreeable. Departure - Departure Time of Disposition: 08:29 Disposition: Admitted As Inpatient 67 Condition: Good Clinical Impression: COVID-19, Pulmonary embolus, Hyperglycemia due to type 2 diabetes mellitus - Discharge Information *PRESCRIPTION DRUG MONITORING PROGRAM REVIEWED*: Not Applicable *COPY OF PRESCRIPTION DRUG MONITORING REPORT IN PATIENT NIDIA: Not Applicable Referrals: PCP,None [Primary Care Provider] - Forms: ED Department Discharge Sepsis Event Note (ED) - Evaluation Sepsis Screening Result: No Definite Risk - Focused Exam Vital Signs: Vital Signs Temp Temp Pulse Resp BP Pulse Ox Pulse Ox 05/21/20 09:05 36.6 C 86 32 H 108/66 88 L 05/21/20 08:53 36.8 C 88 40 H 109/67 90 L 05/21/20 08:39 36.8 C 92 20 96/62 91 L 05/21/20 08:11 36.8 C 92 20 110/60 88 L 05/21/20 07:59 36.8 C 94 20 107/66 05/21/20 04:56 88 L 05/21/20 04:50 37.0 C 102 H 32 H 126/74 75 L - My Orders Last 24 Hours: My Active Orders 05/21/20 05:14 Chest 2V [CR] Stat 05/21/20 05:15 EKG Documentation Completion [RC] STAT 05/21/20 05:16 Blood Culture x2 Reflex Set [OM.PC] Stat Isolation [COMM] Routine 05/21/20 05:17 Transfuse Fresh Frozen Plasma [COMM] Stat Transfuse Fresh Frozen Plasma [COMM] Stat 05/21/20 05:30 CULTURE BLOOD [BC] Stat CULTURE BLOOD [BC] Stat 05/21/20 05:38 ABO/RH TYPE [BBK] Stat FRESH FROZEN PLASMA [BBK] Stat 05/21/20 06:36 Verify Patient Consent Obtain [RC] ASDIRECTED Transfuse Fresh Frozen Plasma [COMM] Routine 05/21/20 06:48 Ang Chest [CT] Stat 05/21/20 07:00 Sodium Chloride 0.9% [Normal Saline] 1,000 ml IV ASDIRECTED 05/21/20 07:06 Sodium Chloride 0.9% [Saline Flush] 10 ml FLUSH ONETIME PRN 05/21/20 07:15 Sodium Chloride 0.9% [Normal Saline] 45 ml IV ASDIRECTED 05/21/20 09:00 Remdesivir (Eua) [Remdesivir (EUA)] 200 mg Sodium Chloride 0.9% [Normal Saline] 250 ml IV ONETIME - Assessment/Plan Last 24 Hours: My Active Orders 05/21/20 05:14 Chest 2V [CR] Stat 05/21/20 05:15 EKG Documentation Completion [RC] STAT 05/21/20 05:16 Blood Culture x2 Reflex Set [OM.PC] Stat Isolation [COMM] Routine 05/21/20 05:17 Transfuse Fresh Frozen Plasma [COMM] Stat Transfuse Fresh Frozen Plasma [COMM] Stat 05/21/20 05:30 CULTURE BLOOD [BC] Stat CULTURE BLOOD [BC] Stat 05/21/20 05:38 ABO/RH TYPE [BBK] Stat FRESH FROZEN PLASMA [BBK] Stat 05/21/20 06:36 Verify Patient Consent Obtain [RC] ASDIRECTED Transfuse Fresh Frozen Plasma [COMM] Routine 05/21/20 06:48 Ang Chest [CT] Stat 05/21/20 07:00 Sodium Chloride 0.9% [Normal Saline] 1,000 ml IV ASDIRECTED 05/21/20 07:06 Sodium Chloride 0.9% [Saline Flush] 10 ml FLUSH ONETIME PRN 05/21/20 07:15 Sodium Chloride 0.9% [Normal Saline] 45 ml IV ASDIRECTED 05/21/20 09:00 Remdesivir (Eua) [Remdesivir (EUA)] 200 mg Sodium Chloride 0.9% [Normal Saline] 250 ml IV ONETIME
[2020-05-21] MEDS ORDERED: REMDESIVIR 200 MG in Sodium Chloride 0.9% 250 ML IV ONE ×2 (06:49→09:00)
[2020-05-21] MEDS ORDERED: Dexamethasone 4 MG/ML 5 ML MDV IV STA (06:49)
[2020-05-21] MEDS ORDERED: Sodium Chloride 0.9% 1,000 ML IV SCH (07:00)
[2020-05-21] MEDS ORDERED: Sodium Chloride 0.9% 10 ML Syringe FLUSH PRN (07:06)
[2020-05-21] MEDS ORDERED: Iopamidol 612 MG/ML 100 ML Bottle IVPUSH ONE (07:06)
[2020-05-21] MEDS ORDERED: Sodium Chloride 0.9% 45 ML IV SCH (07:15)
[2020-05-21] MEDS ORDERED: Iopamidol 755 Mg/ML 100 ML Bottle IVPUSH ONE (07:42)
[2020-05-21] MEDS ORDERED: Rivaroxaban 15 MG Tab PO STA (08:23)
--- NOTE | 2020-05-21 14:19 | PCM.HP.2 ---
H&P History of Present Illness - General Date of Service: 05/21/20 Admit Problem/Dx: Admission Diagnosis/Problem Admission Diagnosis/Problem Pneumonia Source of Information: Patient, Provider History Limitations: Reports: No Limitations - History of Present Illness Initial Comments - Free Text/Narative: 24 year old female who tested positive for Covid-19. presents with increasing SOB, malaise; cough with sputum. She describes CP with fever and chills. Patient was hypoxic and started on CV plasma, Remdesivir and Dexamethasone in the ED. O2 therapy was also initiated. The patient will require at least a 5 day admission for treatment. O2 theray will be titrated for O2 saturation 88- 94%. She will need to follow up with her PCP 2 weeks after DC. Onset of Symptoms: Reports: Gradual Symptom Onset Date: 05/12/20 Duration of Symptoms: Reports: Week(s):, Getting Worse, Waxing/Waning Location: Reports: Generalized Quality: Reports: Same as Previous Episode Improves with: Reports: None Worsens with: Reports: None Associated Symptoms: Reports: Chest Pain, cough w sputum, Loss of Appetite, Malaise, Nausea/Vomiting, Shortness of Breath, Weakness Headache Pain Score (Numeric/FACES): 5 - Related Data Allergies/Adverse Reactions: Allergies Allergy/AdvReac Type Severity Reaction Status Date / Time No Known Allergies Allergy Verified 05/21/20 04:53 Home Medications: Home Meds metFORMIN [Glucophage] 500 mg PO DAILY 05/21/20 [History] Past Medical History - Past Health History Medical/Surgical History: Denies Medical/Surgical History HEENT History: Reports: Impaired Vision Genitourinary History: Reports: Renal Calculus Musculoskeletal History: Reports: Fracture (right 5th toe) Other Musculoskeletal History: right pinky toe Neurological History: Reports: Other (See Below) (Asperger disorder) Psychiatric History: Reports: Other (See Below) Other Psychiatric History: asbergers Endocrine/Metabolic History: Reports: Obesity/BMI 30+, Other (See Below) (Prediabetes) Other Endocrine/Metabolic History: "pre diabetes" - Infectious Disease History Infectious Disease History: Reports: Novel Coronavirus (dx'd 05/14/2020) - Past Surgical History HEENT Surgical History: Reports: Oral Surgery (dental extractions) Musculoskeletal Surgical History: Reports: ORIF (left hand) Social & Family History - Family History Family Medical History: Noncontributory - Tobacco Use Tobacco Use Status *Q: Never Tobacco User Second Hand Smoke Exposure: No - Caffeine Use Caffeine Use: Reports: Soda - Recreational Drug Use Recreational Drug Use: No - Living Situation & Occupation Living situation: Reports: , with Spouse Occupation: Unemployed H&P Review of Systems - Review of Systems: Review Of Systems: See Below General: Reports: Fever, Chills, Malaise, Weakness, Fatigue, Decreased Appetite HEENT: Reports: No Symptoms Pulmonary: Reports: Shortness of Breath Cardiovascular: Reports: Chest Pain Gastrointestinal: Reports: No Symptoms Genitourinary: Reports: No Symptoms Musculoskeletal: Reports: No Symptoms Skin: Reports: No Symptoms Psychiatric: Reports: No Symptoms Neurological: Reports: No Symptoms Hematologic/Lymphatic: Reports: No Symptoms Immunologic: Reports: No Symptoms Exam - Exam Exam: See Below - Vital Signs Vital Signs: Last Vital Signs Temp 37.2 C 05/21/20 10:00 Pulse 102 H 05/21/20 10:00 Resp 40 H 05/21/20 10:00 BP 113/62 05/21/20 10:00 Pulse Ox 90 L 05/21/20 10:00 Weight: 113.398 kg - Exam Quality Assessment: Supplemental Oxygen, DVT Prophylaxis General: Alert, Oriented, Cooperative HEENT: EOMI, Hearing Intact, Mucosa Moist & [place], Nares Patent, Normal Nasal Septum, PERRLA Neck: Trachea Midline Lungs: Normal Respiratory Effort, Decreased Breath Sounds, Rales Cardiovascular: Regular Rate, Regular Rhythm GI/Abdominal Exam: Normal Bowel Sounds, Soft, Non-Tender, No Organomegaly, No Distention (Female) Exam: Deferred Rectal (Female) Exam: Deferred Back Exam: Normal Inspection Extremities: Normal Inspection, Non-Tender, Normal Capillary Refill Skin: Warm, Dry, Intact Neurological: Cranial Nerves Intact Neuro Extensive - Mental Status: Alert, Oriented x3 Neuro Extensive - Motor, Sensory, Reflexes: CN II-XII Intact Psychiatric: Alert - Patient Data Lab Results Last 24 hrs: Laboratory Results - last 24 hr 05/21/20 05/21/20 05/21/20 Range/Units 05:32 05:38 05:38 WBC 6.39 (3.98-10.04) K/mm3 RBC 4.74 (3.98-5.22) M/mm3 Hgb 13.2 (11.2-15.7) gm/dl Hct 41.2 (34.1-44.9) % MCV 86.9 (79.4-94.8) fl MCH 27.8 (25.6-32.2) pg MCHC 32.0 L (32.2-35.5) g/dl RDW Std Deviation 42.4 (36.4-46.3) fL Plt Count 304 D (182-369) K/mm3 MPV 9.0 L (9.4-12.3) fl Neutrophils % (Manual) 88 H (40-60) % Band Neutrophils % 0 (0-10) % Lymphocytes % (Manual) 12 L (20-40) % Atypical Lymphs % 0 % Monocytes % (Manual) 0 L (2-10) % Eosinophils % (Manual) 0 L (0.7-5.8) % Basophils % (Manual) 0 L (0.1-1.2) Platelet Estimate Adequate RBC Morph Comment Normal D-Dimer, Quantitative (0.19-0.50) mg/L Puncture Site ABG pH (7.35-7.45) ABG pCO2 (35.0-45.0) mmHg ABG pO2 (80.0-100.0) mmHg ABG HCO3 (22.0-26.0) meq/L ABG O2 Saturation (96.0-97.0) % ABG Base Excess (-2-2.0) Ambrosio Test A-a Gradient mmHg O2 Delivery Device Oxygen Flow Rate FiO2 (21.00-100.00) % Sodium 140 (136-145) mEq/L Potassium 3.6 (3.5-5.1) mEq/L Chloride 102 (98-107) mEq/L Carbon Dioxide 25 (21-32) mEq/L Anion Gap 16.6 H (5-15) BUN 8 (7-18) mg/dL Creatinine 0.8 (0.55-1.02) mg/dL Est Cr Clr Drug Dosing 98.41 mL/min Estimated GFR (MDRD) > 60 (>60) mL/min BUN/Creatinine Ratio 10.0 L (14-18) Glucose 162 H (74-106) mg/dL Lactic Acid 0.8 (0.4-2.0) mmol/L Calcium 8.2 L (8.5-10.1) mg/dL Magnesium 1.9 (1.8-2.4) mg/dl Total Bilirubin 0.4 (0.2-1.0) mg/dL AST 26 (15-37) U/L ALT 30 (14-59) U/L Alkaline Phosphatase 35 L (46-116) U/L Troponin I < 0.017 (0.00-0.056) ng/mL Total Protein 7.1 (6.4-8.2) g/dl Albumin 3.0 L (3.4-5.0) g/dl Globulin 4.1 gm/dL Albumin/Globulin Ratio 0.7 L (1-2) Blood Type 05/21/20 05/21/20 05/21/20 Range/Units 05:38 05:38 05:50 WBC (3.98-10.04) K/mm3 RBC (3.98-5.22) M/mm3 Hgb (11.2-15.7) gm/dl Hct (34.1-44.9) % MCV (79.4-94.8) fl MCH (25.6-32.2) pg MCHC (32.2-35.5) g/dl RDW Std Deviation (36.4-46.3) fL Plt Count (182-369) K/mm3 MPV (9.4-12.3) fl Neutrophils % (Manual) (40-60) % Band Neutrophils % (0-10) % Lymphocytes % (Manual) (20-40) % Atypical Lymphs % % Monocytes % (Manual) (2-10) % Eosinophils % (Manual) (0.7-5.8) % Basophils % (Manual) (0.1-1.2) Platelet Estimate RBC Morph Comment D-Dimer, Quantitative 1.04 H (0.19-0.50) mg/L Puncture Site Rt radial ABG pH 7.42 (7.35-7.45) ABG pCO2 39.7 (35.0-45.0) mmHg ABG pO2 60.0 L (80.0-100.0) mmHg ABG HCO3 25.4 (22.0-26.0) meq/L ABG O2 Saturation 89.5 L (96.0-97.0) % ABG Base Excess 1.4 (-2-2.0) Ambrosio Test Positive A-a Gradient 119 mmHg O2 Delivery Device Nasal cannula Oxygen Flow Rate 3.0 FiO2 32.00 (21.00-100.00) % Sodium (136-145) mEq/L Potassium (3.5-5.1) mEq/L Chloride (98-107) mEq/L Carbon Dioxide (21-32) mEq/L Anion Gap (5-15) BUN (7-18) mg/dL Creatinine (0.55-1.02) mg/dL Est Cr Clr Drug Dosing mL/min Estimated GFR (MDRD) (>60) mL/min BUN/Creatinine Ratio (14-18) Glucose (74-106) mg/dL Lactic Acid (0.4-2.0) mmol/L Calcium (8.5-10.1) mg/dL Magnesium (1.8-2.4) mg/dl Total Bilirubin (0.2-1.0) mg/dL AST (15-37) U/L ALT (14-59) U/L Alkaline Phosphatase (46-116) U/L Troponin I (0.00-0.056) ng/mL Total Protein (6.4-8.2) g/dl Albumin (3.4-5.0) g/dl Globulin gm/dL Albumin/Globulin Ratio (1-2) Blood Type B POSITIVE Result Diagrams: 05/21/20 05:38 05/21/20 05:38 Brian Results Last 24 hrs: Microbiology 05/21/20 05:30 Influenza Type A Antigen Screen - Final Nasopharyngeal Swab NEGATIVE INFLUENZA A VIRUS AG REFERENCE RANGE: NEGATIVE Influenza Type B Antigen Screen - Final NEGATIVE INFLUENZA B VIRUS AG REFERENCE RANGE: NEGATIVE Sepsis Event Note - Evaluation Sepsis Screening Result: No Definite Risk - Focused Exam Vital Signs: Vital Signs Temp Temp Pulse Resp BP Pulse Ox Pulse Ox 05/21/20 10:00 37.2 C 102 H 40 H 113/62 90 L 05/21/20 09:16 36.1 C 90 30 H 108/68 87 L 05/21/20 09:05 36.6 C 86 32 H 108/66 88 L 05/21/20 08:53 36.8 C 88 40 H 109/67 90 L 05/21/20 08:39 36.8 C 92 20 96/62 91 L 05/21/20 08:11 36.8 C 92 20 110/60 88 L 05/21/20 07:59 36.8 C 94 20 107/66 05/21/20 04:56 88 L 05/21/20 04:50 37.0 C 102 H 32 H 126/74 75 L Problem List Initiated/Reviewed/Updated: Yes Orders Last 24hrs: Active Orders 24 hr Category Date Time Status Admission Status [Patient Status] [ADT] Routine ADT 05/21/20 13:47 Active EKG Documentation Completion [RC] STAT Care 05/21/20 05:15 Active Verify Patient Consent Obtain [RC] ASDIRECTED Care 05/21/20 06:36 Active Ang Chest [CT] Stat Exams 05/21/20 06:48 Taken Chest 2V [CR] Stat Exams 05/21/20 05:14 Taken CULTURE BLOOD [BC] Stat Lab 05/21/20 05:30 Received CULTURE BLOOD [BC] Stat Lab 05/21/20 05:30 Received Sodium Chloride 0.9% [Normal Saline] 1,000 ml Med 05/21/20 07:00 Active IV ASDIRECTED Sodium Chloride 0.9% [Normal Saline] 45 ml Med 05/21/20 07:15 Active IV ASDIRECTED Sodium Chloride 0.9% [Saline Flush] Med 05/21/20 07:06 Active 10 ml FLUSH ONETIME PRN Blood Culture x2 Reflex Set [OM.PC] Stat Oth 05/21/20 05:16 Ordered Isolation [COMM] Routine Oth 05/21/20 05:16 Ordered Transfuse Fresh Frozen Plasma [COMM] Routine Oth 05/21/20 06:36 Ordered Transfuse Fresh Frozen Plasma [COMM] Stat Oth 05/21/20 05:17 Ordered Transfuse Fresh Frozen Plasma [COMM] Stat Oth 05/21/20 05:17 Ordered Medication Orders Sodium Chloride (Normal Saline) 1,000 mls @ 75 mls/hr IV ASDIRECTED ANGELIQUE Last Admin: 05/21/20 07:50 Dose: 75 mls/hr Documented by: CURT Sodium Chloride (Normal Saline) 45 mls @ 40 mls/hr IV ASDIRECTED ANGELIQUE Last Admin: 05/21/20 07:41 Dose: 40 mls/hr Documented by: TEJ Sodium Chloride (Saline Flush) 10 ml FLUSH ONETIME PRN PRN Reason: Keep Vein Open Last Admin: 05/21/20 07:41 Dose: 10 ml Documented by: TEJ Assessment/Plan Comment:: Impression: Covid-19 PNA with hypoxia Failed OP supportive treatment Chronic Obesity Diabetes Mellitus II Plan: Titrate O2, keep O2 sat 88-94%. Remdesivir Dexamethasone Zithromax/Rocephin ASA Lovenox Covid-19 daily labs Pulmonary toilet - Mortality Measure Prognosis:: Good
[2020-05-21] MEDS: Azithromycin 500 MG in Sodium Chloride 0.9% 250 ML IV SCH (17:18)
[2020-05-21] MEDS: cefTRIAXone 2 GM in Sodium Chloride 0.9% 100 ML IV SCH (18:41)
[2020-05-21] MEDS: Insulin Regular, Human 100 Units/ML 3 ML Vial SUBCUT SCH (19:00)
[2020-05-21] MEDS: Aspirin 81 MG Tab.EC PO SCH (19:02)
[2020-05-22] MEDS: Albuterol 6.7 GM Inhaler INH PRN ×4 (08:54→20:58)
[2020-05-22] MEDS: Aspirin 81 MG Tab.EC PO SCH (09:04)
[2020-05-22] MEDS: Dexamethasone 4 MG Tab PO SCH (09:04)
[2020-05-22] MEDS: REMDESIVIR 100 MG in Sodium Chloride 0.9% 100 ML IV SCH (09:57)
[2020-05-22] MEDS: Insulin Regular, Human 100 Units/ML 3 ML Vial SUBCUT SCH ×4 (10:06→22:08)
--- NOTE | 2020-05-22 12:00 | PCM.PN ---
- General Info Date of Service: 05/22/20 Functional Status: Reports: Tolerating Diet, Ambulating, Urinating - Review of Systems General: Reports: Weakness, Fatigue HEENT: Reports: No Symptoms Pulmonary: Reports: No Symptoms Cardiovascular: Reports: No Symptoms Gastrointestinal: Reports: No Symptoms Genitourinary: Reports: No Symptoms Musculoskeletal: Reports: No Symptoms Skin: Reports: No Symptoms Neurological: Reports: No Symptoms Psychiatric: Reports: No Symptoms - Patient Data Vitals - Most Recent: Last Vital Signs Temp 36.4 C 05/22/20 07:15 Pulse 83 05/22/20 07:15 Resp 22 H 05/22/20 07:15 BP 132/73 05/22/20 07:15 Pulse Ox 91 L 05/22/20 08:55 Weight - Most Recent: 118.025 kg I&O - Last 24 Hours: Intake & Output 05/21/20 05/22/20 05/22/20 22:59 06:59 14:59 Intake Total 0 600 Output Total 875 Balance 0 -275 Lab Results Last 24 Hours: Laboratory Results - last 24 hr 05/21/20 05/22/20 05/22/20 Range/Units 18:47 04:37 04:37 D-Dimer, Quantitative 0.68 H (0.19-0.50) mg/L POC Glucose 175 H (70-105) mg/dL AST 23 (15-37) U/L ALT 27 (14-59) U/L C-Reactive Protein 6.9 H* (<1.0) mg/dL 05/22/20 05/22/20 Range/Units 10:06 11:10 D-Dimer, Quantitative (0.19-0.50) mg/L POC Glucose 146 H 146 H (70-105) mg/dL AST (15-37) U/L ALT (14-59) U/L C-Reactive Protein (<1.0) mg/dL Brian Results Last 24 Hours: Microbiology 05/21/20 05:30 Aerobic Blood Culture - Preliminary Blood - Venous - Lab Draw NO GROWTH AFTER 1 DAY Anaerobic Blood Culture - Preliminary NO GROWTH AFTER 1 DAY 05/21/20 05:30 Aerobic Blood Culture - Preliminary Blood - Venous NO GROWTH AFTER 1 DAY Anaerobic Blood Culture - Preliminary NO GROWTH AFTER 1 DAY 05/21/20 05:30 Influenza Type A Antigen Screen - Final Nasopharyngeal Swab NEGATIVE INFLUENZA A VIRUS AG REFERENCE RANGE: NEGATIVE Influenza Type B Antigen Screen - Final NEGATIVE INFLUENZA B VIRUS AG REFERENCE RANGE: NEGATIVE Med Orders - Current: Current Medications Albuterol (Proventil Hfa) 0 gm INH Q2H PRN PRN Reason: SOB/WHEEZE Last Admin: 05/22/20 08:54 Dose: 2 puff Documented by: Aspirin (Halfprin) 81 mg PO DAILY [facility] Last Admin: 05/22/20 09:04 Dose: 81 mg Documented by: Dexamethasone (Dexamethasone) 6 mg PO DAILY [facility] Last Admin: 05/22/20 09:04 Dose: 6 mg Documented by: Remdesivir 100 mg/ Sodium (Chloride) 100 mls @ 100 mls/hr IV Q24H [facility] Stop: 05/25/20 10:59 Last Admin: 05/22/20 09:57 Dose: 100 mls/hr Documented by: Azithromycin 500 mg/ Sodium (Chloride) 250 mls @ 250 mls/hr IV Q24H [facility] Stop: 05/23/20 17:59 Last Admin: 05/21/20 17:18 Dose: 250 mls/hr Documented by: Ceftriaxone Sodium 2 gm/ (Sodium Chloride) 100 mls @ 200 mls/hr IV Q24H [facility] Last Admin: 05/21/20 18:41 Dose: 200 mls/hr Documented by: Insulin Human Regular (Humulin R) 0 unit SUBCUT QIDACANDBED [facility]; Protocol Rivaroxaban (Xarelto) 15 mg PO WITHDINNER [facility] Sodium Chloride (Saline Flush) 10 ml FLUSH ONETIME PRN PRN Reason: Keep Vein Open Last Admin: 05/21/20 07:41 Dose: 10 ml Documented by: Discontinued Medications Dexamethasone (Dexamethasone) 6 mg IV ONETIME [facility] Stop: 05/21/20 06:50 Last Admin: 05/21/20 07:17 Dose: 6 mg Documented by: Sodium Chloride (Normal Saline) 1,000 mls @ 75 mls/hr IV ASDIRECTED [facility] Last Admin: 05/21/20 07:50 Dose: 75 mls/hr Documented by: Sodium Chloride (Normal Saline) 45 mls @ 40 mls/hr IV ASDIRECTED [facility] Last Admin: 05/21/20 07:41 Dose: 40 mls/hr Documented by: Remdesivir 200 mg/ Sodium (Chloride) 250 mls @ 250 mls/hr IV ONETIME ONE Stop: 05/21/20 09:59 Last Admin: 05/21/20 09:05 Dose: 250 mls/hr Documented by: Insulin Human Regular (Humulin R) [address] [facility]; Protocol Last Admin: 05/22/20 10:06 Dose: Not Given Documented by: Iopamidol (Isovue-300 (61%)) 100 ml IVPUSH ONETIME ONE Stop: 05/21/20 07:07 Last Admin: 05/21/20 07:41 Dose: Not Given Documented by: Iopamidol (Isovue-370 (76%)) 100 ml IVPUSH ONETIME ONE Stop: 05/21/20 07:43 Last Admin: 05/21/20 07:44 Dose: 100 ml Documented by: Rivaroxaban (Xarelto) 15 mg PO ONETIME [facility] Stop: 05/21/20 08:24 Last Admin: 05/21/20 08:36 Dose: 15 mg Documented by: - Exam Quality Assessment: Supplemental Oxygen, DVT Prophylaxis, Restraints General: Alert, Oriented, Cooperative HEENT: Pupils Equal, Pupils Reactive, EOMI Neck: Trachea Midline, No JVD Lungs: Normal Respiratory Effort, Decreased Breath Sounds, Rhonchi Cardiovascular: Regular Rate, Regular Rhythm GI/Abdominal Exam: Normal Bowel Sounds, Soft, Non-Tender, No Distention (Female) Exam: Deferred Back Exam: Normal Inspection Extremities: Normal Inspection, Normal Range of Motion Skin: Warm Neurological: No New Focal Deficit, Normal Speech Psy/Mental Status: Alert, Normal Affect, Normal Mood Sepsis Event Note - Evaluation Sepsis Screening Result: No Definite Risk - Focused Exam Vital Signs: Vital Signs Temp Pulse Resp BP Pulse Ox Pulse Ox 05/22/20 08:55 91 L 05/22/20 07:15 36.4 C 83 22 H 132/73 89 L 05/22/20 03:31 36.8 C 71 23 H 137/83 91 L 05/22/20 00:22 36.2 C 78 23 H 120/57 L 90 L - Problem List & Annotations (1) COVID-19 SNOMED Code(s): 039518717 Code(s): U07.1 - COVID-19 Status: Acute Current Visit: Yes (2) Hyperglycemia due to type 2 diabetes mellitus SNOMED Code(s): 613658954482623, 973200278261080 Code(s): E11.65 - TYPE 2 DIABETES MELLITUS WITH HYPERGLYCEMIA Status: Acute Current Visit: Yes (3) Pulmonary embolus SNOMED Code(s): 87916214 Code(s): I26.99 - OTHER PULMONARY EMBOLISM WITHOUT ACUTE COR PULMONALE Status: Acute Priority: High Current Visit: Yes (4) Abdominal pain SNOMED Code(s): 73037194 Code(s): R10.9 - UNSPECIFIED ABDOMINAL PAIN Status: Acute Current Visit: No Qualifiers: Abdominal location: right upper quadrant Qualified Code(s): R10.11 - Right upper quadrant pain - Problem List Review Problem List Initiated/Reviewed/Updated: Yes - My Orders Last 24 Hours: My Active Orders 05/21/20 14:58 Vital Signs [RC] Q4H Code Status [Resuscitation Status] Routine 05/21/20 14:59 Bedrest Bathroom Privileges [RC] ASDIRECTED 05/21/20 15:04 Accu Check [Blood Glucose Check, Bedside] [RC] QIDACANDBED 05/21/20 Dinner Consistent Carbohydrate Diet [DIET] Azithromycin [Zithromax] 500 mg Sodium Chloride 0.9% [Normal Saline (AdvBag)] 250 ml IV Q24H 05/21/20 18:00 cefTRIAXone [Rocephin] 2 gm Sodium Chloride 0.9% [Normal Saline] 100 ml IV Q24H 05/21/20 18:45 Aspirin [Halfprin] 81 mg PO DAILY 05/22/20 07:26 Albuterol [Proventil HFA] See Dose Instructions INH Q2H PRN 05/22/20 09:00 dexAMETHasone 6 mg PO DAILY 05/22/20 10:00 Remdesivir (Eua) [Remdesivir (EUA)] 100 mg Sodium Chloride 0.9% [Normal S amado] 100 ml IV Q24H 05/22/20 11:00 Insulin Regular, Human [HumuLIN R] See Protocol SUBCUT QIDACANDBED 05/22/20 17:00 Rivaroxaban [Xarelto] 15 mg PO WITHDINNER 05/23/20 06:00 CRP [C-REACTIVE PROTEIN] [CHEM] DAILY D Dimer [D-DIMER QUANTITATIVE] [COAG] DAILY 05/24/20 06:00 CRP [C-REACTIVE PROTEIN] [CHEM] DAILY D Dimer [D-DIMER QUANTITATIVE] [COAG] DAILY 05/25/20 06:00 CRP [C-REACTIVE PROTEIN] [CHEM] DAILY D Dimer [D-DIMER QUANTITATIVE] [COAG] DAILY 05/26/20 06:00 CRP [C-REACTIVE PROTEIN] [CHEM] DAILY D Dimer [D-DIMER QUANTITATIVE] [COAG] DAILY - Plan Plan:: Impression: Covid-19 PNA with hypoxia Failed OP supportive treatment Acute PEs Chronic Obesity Diabetes Mellitus II Plan: 2D echo re: RV strain Titrate O2, keep O2 sat 88-94%. Remdesivir Dexamethasone Zithromax/Rocephin ASA Lovenox Covid-19 daily labs Sliding scale insulin Pulmonary toilet
[2020-05-22] MEDS ORDERED: Rivaroxaban 15 MG Tab PO SCH (17:00)
[2020-05-22] MEDS: Azithromycin 500 MG in Sodium Chloride 0.9% 250 ML IV SCH (17:09)
[2020-05-22] MEDS: cefTRIAXone 2 GM in Sodium Chloride 0.9% 100 ML IV SCH (18:17)
[2020-05-23] MEDS: Albuterol 6.7 GM Inhaler INH PRN ×3 (08:37→21:25)
[2020-05-23] MEDS: Aspirin 81 MG Tab.EC PO SCH (09:20)
[2020-05-23] MEDS: Insulin Regular, Human 100 Units/ML 3 ML Vial SUBCUT SCH ×4 (09:21→22:21)
[2020-05-23] MEDS: Dexamethasone 4 MG Tab PO SCH (09:21)
[2020-05-23] MEDS: REMDESIVIR 100 MG in Sodium Chloride 0.9% 100 ML IV SCH (09:25)
--- NOTE | 2020-05-23 10:28 | CT ---
"Addendum created by Shalini Gregorio MD on 05/21/2020 9:07 AM Central Time ([place]): THIS REPORT CONTAINS FINDINGS THAT MAY BE CRITICAL TO PATIENT CARE. The findings were verbally communicated via telephone conference with WALESKA VALDEZ at 9:07 AM PROSPECT MANAGER on 05/21/2020. The findings were acknowledged and understood. Initial Report created on 05/21/2020 9:02 AM Central Time ([place]): PROCEDURE INFORMATION: Exam: CT Angiography Chest With Contrast Exam date and time: 05/21/2020 7:07 AM Age: 24 years old Clinical indication: Shortness of breath and other: Elevated d-dimer , looking for pe; Patient HX: Positive for covid TECHNIQUE: Imaging protocol: Computed tomographic angiography of the chest with intravenous contrast. 3D rendering (Not supervised by radiologist): MIP and/or 3D reconstructed images were created by the technologist. COMPARISON: DX Chest 2V 05/21/2020 6:50 AM FINDINGS: Pulmonary arteries: Non occluding pulmonary embolus: Non occluding filling defect at the bifurcation of the branch to the right middle lobe and right descending pulmonary artery. It measures 18 by 11 mm. Series 5, image 44 -47. Aorta: No aneurysm of the aorta. No dissection of the aorta. Lungs: Patchy bilateral opacities may represent multifocal pneumonia. Pleural space: Unremarkable. No pneumothorax. No pleural effusion. Heart: Unremarkable. No cardiomegaly. No pericardial effusion. Lymph nodes: Unremarkable. No enlarged lymph nodes. Bones/joints: Unremarkable. No acute fracture. JARED SAMSON | Final Radiology Report CONFIDENTIALITY STATEMENT This report is intended only for use by the referring physician, and only in accordance with law. If you received this in error, call [phone]. Page 2 of 2 Soft tissues: Unremarkable. IMPRESSION: 1. Non occluding pulmonary embolus: Non occluding filling defect at the bifurcation of the branch to the right middle lobe and right descending pulmonary artery. It measures 18 by 11 mm. Series 5, image 44 -47. 2. No aneurysm of the aorta. 3. No dissection of the aorta. 4. Patchy bilateral opacities may represent multifocal pneumonia. Thank you for allowing us to participate in the care of your patient. Dictated and Authenticated by: Shalini Gregorio MD 05/21/2020 9:02 AM Central Time ([place]) BORIS"
--- NOTE | 2020-05-23 10:29 | CR ---
PROCEDURE INFORMATION: Exam: XR Chest, 2 Views Exam date and time: 05/21/2020 6:50 AM Age: 24 years old Clinical indication: Shortness of breath; Patient HX: SOB, covid positive results last Saturday TECHNIQUE: Imaging protocol: XR of the chest Views: 2 views. COMPARISON: No relevant prior studies available. FINDINGS: Tubes, catheters and devices: Overlying EKG wires Lungs: Patchy bilateral opacities may reflect multifocal pneumonia. . Pleural space: Unremarkable. No pleural effusion. No pneumothorax. Heart/Mediastinum: Unremarkable. No cardiomegaly. Bones/joints: Unremarkable. IMPRESSION: Patchy bilateral opacities may reflect multifocal pneumonia. . Thank you for allowing us to participate in the care of your patient. Dictated and Authenticated by: Shalini Gregorio MD 05/21/2020 8:09 AM Central Time ([place]) BORIS
[2020-05-23] MEDS: Rivaroxaban 15 MG Tab PO SCH ×2 (11:39→22:22)
--- NOTE | 2020-05-23 13:04 | PCM.PN ---
<Ruiz,DeAnn M - Last Filed: 05/23/20 13:09> - General Info Date of Service: 05/23/20 Admission Dx/Problem (Free Text): Admission Diagnosis/Problem Admission Diagnosis/Problem Pneumonia Subjective Update: Patient reports feeling well. Sitting up in chair eating. Continues on 5 L per nasal cannula. Functional Status: Reports: Pain Controlled, Tolerating Diet, Ambulating, Urinating, Incentive Spirometry - Review of Systems General: Reports: No Symptoms HEENT: Reports: No Symptoms Pulmonary: Reports: Cough. Denies: Shortness of Breath, Pleuritic Chest Pain, Sputum Cardiovascular: Reports: No Symptoms Gastrointestinal: Reports: No Symptoms Genitourinary: Reports: No Symptoms Musculoskeletal: Reports: No Symptoms Skin: Reports: No Symptoms Neurological: Reports: No Symptoms Psychiatric: Reports: No Symptoms - Patient Data Vitals - Most Recent: Last Vital Signs Temp 97.5 F 05/23/20 11:41 Pulse 75 05/23/20 11:41 Resp 22 H 05/23/20 11:41 BP 120/86 05/23/20 11:41 Pulse Ox 96 05/23/20 11:41 Weight - Most Recent: 117.344 kg I&O - Last 24 Hours: Intake & Output 05/22/20 05/23/20 05/23/20 22:59 06:59 14:59 Intake Total 1240 500 240 Output Total 800 700 Balance 440 -200 240 Lab Results Last 24 Hours: Laboratory Results - last 24 hr 05/22/20 05/22/20 05/23/20 Range/Units 17:01 22:06 05:40 WBC (3.98-10.04) K/mm3 RBC (3.98-5.22) M/mm3 Hgb (11.2-15.7) gm/dl Hct (34.1-44.9) % MCV (79.4-94.8) fl MCH (25.6-32.2) pg MCHC (32.2-35.5) g/dl RDW Std Deviation (36.4-46.3) fL Plt Count (182-369) K/mm3 MPV (9.4-12.3) fl Neut % (Auto) (34.0-71.1) % Lymph % (Auto) (19.3-51.7) % [place] % (Auto) (4.7-12.5) % Eos % (Auto) (0.7-5.8) Baso % (Auto) (0.1-1.2) % Neut # (Auto) (1.56-6.13) K/mm3 Lymph # (Auto) (1.18-3.74) K/mm3 [place] # (Auto) (0.24-0.36) K/mm3 Eos # (Auto) (0.04-0.36) K/mm3 Baso # (Auto) (0.01-0.08) K/mm3 Manual Slide Review D-Dimer, Quantitative (0.19-0.50) mg/L Sodium (136-145) mEq/L Potassium (3.5-5.1) mEq/L Chloride (98-107) mEq/L Carbon Dioxide (21-32) mEq/L Anion Gap (5-15) BUN (7-18) mg/dL Creatinine (0.55-1.02) mg/dL Est Cr Clr Drug Dosing mL/min Estimated GFR (MDRD) (>60) mL/min BUN/Creatinine Ratio (14-18) Glucose (74-106) mg/dL POC Glucose 204 H 177 H 155 H (70-105) mg/dL Lactic Acid (0.4-2.0) mmol/L Calcium (8.5-10.1) mg/dL Magnesium (1.8-2.4) mg/dl C-Reactive Protein (<1.0) mg/dL 05/23/20 05/23/20 05/23/20 Range/Units 06:45 06:45 06:45 WBC 5.17 (3.98-10.04) K/mm3 RBC 4.72 (3.98-5.22) M/mm3 Hgb 12.8 (11.2-15.7) gm/dl Hct 41.2 (34.1-44.9) % MCV 87.3 (79.4-94.8) fl MCH 27.1 (25.6-32.2) pg MCHC 31.1 L (32.2-35.5) g/dl RDW Std Deviation 41.6 (36.4-46.3) fL Plt Count 430 H D (182-369) K/mm3 MPV 9.2 L (9.4-12.3) fl Neut % (Auto) 71.5 H (34.0-71.1) % Lymph % (Auto) 18.4 L (19.3-51.7) % [place] % (Auto) 9.3 (4.7-12.5) % Eos % (Auto) 0 L (0.7-5.8) Baso % (Auto) 0.2 (0.1-1.2) % Neut # (Auto) 3.70 (1.56-6.13) K/mm3 Lymph # (Auto) 0.95 L (1.18-3.74) K/mm3 [place] # (Auto) 0.48 H (0.24-0.36) K/mm3 Eos # (Auto) 0.00 L (0.04-0.36) K/mm3 Baso # (Auto) 0.01 (0.01-0.08) K/mm3 Manual Slide Review Abnormal smear D-Dimer, Quantitative 0.64 H (0.19-0.50) mg/L Sodium 144 (136-145) mEq/L Potassium 3.9 (3.5-5.1) mEq/L Chloride 109 H (98-107) mEq/L Carbon Dioxide 24 (21-32) mEq/L Anion Gap 14.9 (5-15) BUN 13 (7-18) mg/dL Creatinine 0.7 (0.55-1.02) mg/dL Est Cr Clr Drug Dosing 112.47 mL/min Estimated GFR (MDRD) > 60 (>60) mL/min BUN/Creatinine Ratio 18.6 H (14-18) Glucose 166 H (74-106) mg/dL POC Glucose (70-105) mg/dL Lactic Acid (0.4-2.0) mmol/L Calcium 8.9 (8.5-10.1) mg/dL Magnesium 2.0 (1.8-2.4) mg/dl C-Reactive Protein 3.4 H* (<1.0) mg/dL 05/23/20 05/23/20 Range/Units 06:45 11:35 WBC (3.98-10.04) K/mm3 RBC (3.98-5.22) M/mm3 Hgb (11.2-15.7) gm/dl Hct (34.1-44.9) % MCV (79.4-94.8) fl MCH (25.6-32.2) pg MCHC (32.2-35.5) g/dl RDW Std Deviation (36.4-46.3) fL Plt Count (182-369) K/mm3 MPV (9.4-12.3) fl Neut % (Auto) (34.0-71.1) % Lymph % (Auto) (19.3-51.7) % [place] % (Auto) (4.7-12.5) % Eos % (Auto) (0.7-5.8) Baso % (Auto) (0.1-1.2) % Neut # (Auto) (1.56-6.13) K/mm3 Lymph # (Auto) (1.18-3.74) K/mm3 [place] # (Auto) (0.24-0.36) K/mm3 Eos # (Auto) (0.04-0.36) K/mm3 Baso # (Auto) (0.01-0.08) K/mm3 Manual Slide Review D-Dimer, Quantitative (0.19-0.50) mg/L Sodium (136-145) mEq/L Potassium (3.5-5.1) mEq/L Chloride (98-107) mEq/L Carbon Dioxide (21-32) mEq/L Anion Gap (5-15) BUN (7-18) mg/dL Creatinine (0.55-1.02) mg/dL Est Cr Clr Drug Dosing mL/min Estimated GFR (MDRD) (>60) mL/min BUN/Creatinine Ratio (14-18) Glucose (74-106) mg/dL POC Glucose 175 H (70-105) mg/dL Lactic Acid 0.8 (0.4-2.0) mmol/L Calcium (8.5-10.1) mg/dL Magnesium (1.8-2.4) mg/dl C-Reactive Protein (<1.0) mg/dL Brian Results Last 24 Hours: Microbiology 05/21/20 05:30 Aerobic Blood Culture - Preliminary Blood - Venous - Lab Draw NO GROWTH AFTER 2 DAYS Anaerobic Blood Culture - Preliminary NO GROWTH AFTER 2 DAYS 05/21/20 05:30 Aerobic Blood Culture - Preliminary Blood - Venous NO GROWTH AFTER 2 DAYS Anaerobic Blood Culture - Preliminary NO GROWTH AFTER 2 DAYS Med Orders - Current: Current Medications Albuterol (Proventil Hfa) 0 gm INH Q2H PRN PRN Reason: SOB/WHEEZE Last Admin: 05/23/20 08:37 Dose: 2 puff Documented by: Aspirin (Halfprin) 81 mg PO DAILY [facility] Last Admin: 05/23/20 09:20 Dose: 81 mg Documented by: Dexamethasone (Dexamethasone) 6 mg PO DAILY [facility] Last Admin: 05/23/20 09:21 Dose: 6 mg Documented by: Remdesivir 100 mg/ Sodium (Chloride) 100 mls @ 100 mls/hr IV Q24H [facility] Stop: 05/25/20 10:59 Last Admin: 05/23/20 09:25 Dose: 100 mls/hr Documented by: Azithromycin 500 mg/ Sodium (Chloride) 250 mls @ 250 mls/hr IV Q24H [facility] Stop: 05/23/20 17:59 Last Admin: 05/22/20 17:09 Dose: 250 mls/hr Documented by: Ceftriaxone Sodium 2 gm/ (Sodium Chloride) 100 mls @ 200 mls/hr IV Q24H [facility] Last Admin: 05/22/20 18:17 Dose: 200 mls/hr Documented by: Insulin Human Regular (Humulin R) 0 unit SUBCUT QIDACANDBED [facility]; Protocol Last Admin: 05/23/20 11:42 Dose: 1 unit Documented by: Rivaroxaban (Xarelto) 15 mg PO BID [facility] Last Admin: 05/23/20 11:39 Dose: 15 mg Documented by: Sodium Chloride (Saline Flush) 10 ml FLUSH ONETIME PRN PRN Reason: Keep Vein Open Last Admin: 05/21/20 07:41 Dose: 10 ml Documented by: Discontinued Medications Dexamethasone (Dexamethasone) 6 mg IV ONETIME [facility] Stop: 05/21/20 06:50 Last Admin: 05/21/20 07:17 Dose: 6 mg Documented by: Sodium Chloride (Normal Saline) 1,000 mls @ 75 mls/hr IV ASDIRECTED [facility] Last Admin: 05/21/20 07:50 Dose: 75 mls/hr Documented by: Sodium Chloride (Normal Saline) 45 mls @ 40 mls/hr IV ASDIRECTED [facility] Last Admin: 05/21/20 07:41 Dose: 40 mls/hr Documented by: Remdesivir 200 mg/ Sodium (Chloride) 250 mls @ 250 mls/hr IV ONETIME ONE Stop: 05/21/20 09:59 Last Admin: 05/21/20 09:05 Dose: 250 mls/hr Documented by: Insulin Human Regular (Humulin R) 0 unit SUBCUT [facility]; Protocol Last Admin: 05/22/20 10:06 Dose: Not Given Documented by: Iopamidol (Isovue-300 (61%)) 100 ml IVPUSH ONETIME ONE Stop: 05/21/20 07:07 Last Admin: 05/21/20 07:41 Dose: Not Given Documented by: Iopamidol (Isovue-370 (76%)) 100 ml IVPUSH ONETIME ONE Stop: 05/21/20 07:43 Last Admin: 05/21/20 07:44 Dose: 100 ml Documented by: Rivaroxaban (Xarelto) 15 mg PO ONETIME [facility] Stop: 05/21/20 08:24 Last Admin: 05/21/20 08:36 Dose: 15 mg Documented by: [facility] Last Admin: 05/22/20 17:10 Dose: 15 mg Documented by: - Exam Quality Assessment: Supplemental Oxygen (5 L per nasal cannula), DVT Prophylaxis (Xarelto) General: Alert, Oriented, Cooperative, Mild Distress HEENT: Pupils Equal, Pupils Reactive, Mucous Membr. Moist/[place] Neck: Supple, Trachea Midline. No: Lymphadenopathy Lungs: Decreased Breath Sounds Cardiovascular: Regular Rate, Regular Rhythm, No Murmurs GI/Abdominal Exam: Normal Bowel Sounds, Soft, Non-Tender, No Distention (Female) Exam: Deferred Back Exam: Normal Inspection, Full Range of Motion Extremities: Normal Inspection, Normal Range of Motion, Non-Tender, No Pedal Edema, Normal Capillary Refill Peripheral Pulses: 2+: Radial (L), Radial (R), Dorsalis Pedis (L), Dorsalis Pedis (R) Skin: Warm, Dry, Intact Neurological: No New Focal Deficit Psy/Mental Status: Alert, Normal Affect, Normal Mood Sepsis Event Note - Evaluation Sepsis Screening Result: No Definite Risk - Focused Exam Vital Signs: Vital Signs Temp Temp Pulse Pulse Resp BP BP 05/23/20 11:41 97.5 F 75 22 H 120/86 05/23/20 09:17 97.5 F 88 22 H 114/53 L 05/23/20 08:38 05/23/20 05:38 98.2 F 76 20 124/86 05/23/20 01:10 05/23/20 01:00 98.9 F 75 20 128/84 Pulse Ox Pulse Ox 05/23/20 11:41 96 05/23/20 09:17 95 05/23/20 08:38 95 05/23/20 05:38 90 L 05/23/20 01:10 91 L 05/23/20 01:00 86 L - Problem List & Annotations (1) COVID-19 SNOMED Code(s): 737619205 Code(s): U07.1 - COVID-19 Status: Acute Priority: High Current Visit: Yes (2) Hyperglycemia due to type 2 diabetes mellitus SNOMED Code(s): 426119092111244, 577644186856983 Code(s): E11.65 - TYPE 2 DIABETES MELLITUS WITH HYPERGLYCEMIA Status: Acute Priority: High Current Visit: Yes (3) Pulmonary embolus SNOMED Code(s): 42804876 Code(s): I26.99 - OTHER PULMONARY EMBOLISM WITHOUT ACUTE COR PULMONALE Status: Acute Priority: High Current Visit: Yes Qualifiers: Pulmonary embolism type: unspecified Chronicity: acute Acute cor pulmonale presence: unspecified Qualified Code(s): I26.99 - Other pulmonary embolism without acute cor pulmonale (4) Abdominal pain SNOMED Code(s): 64039835 Code(s): R10.9 - UNSPECIFIED ABDOMINAL PAIN Status: Acute Priority: High Current Visit: Yes Qualifiers: Abdominal location: right upper quadrant Qualified Code(s): R10.11 - Right upper quadrant pain - Problem List Review Problem List Initiated/Reviewed/Updated: Yes - Assessment Assessment:: 05/23/20 * Receiving Xarelto twice daily for PE * Has received 2 units of convalescent plasma * Currently receiving remdesivir and dexamethasone daily * Currently receiving Rocephin 2 g IV daily and Zithromax 500 mg daily * Continues on 5 L of oxygen per nasal cannula vital signs have otherwise been stable and she remains afebrile the past 24 hours. * Blood cultures are showing no growth after 2 days. * D-dimer 0.64 which is down from 0.68 * Incentive spirometer and flutter valve at the bedside. - Plan Plan:: Impression: Covid-19 PNA with hypoxia Failed OP supportive treatment Acute PEs Chronic Obesity Diabetes Mellitus II Plan: 2D echo re: RV strain Titrate O2, keep O2 sat 88-94%. Remdesivir Dexamethasone Zithromax/Rocephin ASA Lovenox Covid-19 daily labs Sliding scale insulin Pulmonary toilet 05/23/20 * Continue remdesivir and dexamethasone * Continue Zithromax and Rocephin * Xarelto for DVT prophylaxis and current treatment of pulmonary embolus * 2D echocardiogram * Accu-Cheks 4 times daily and at bedtime with sliding scale insulin as needed for coverage * Continue incentive spirometer and flutter eval * Nebulizers as needed for shortness of breath or wheezing * Respiratory therapy to continue titrating oxygen * business services intern to assist with discharge planning * Repeat labs in the a.m. * Continue to monitor vital signs and intake and output * Patient will need to follow-up with Dr. Harris upon discharge regarding dosing and medication compliance with Xarelto <Bryanna Knight - Last Filed: 05/23/20 16:26> - Patient Data Vitals - Most Recent: Last Vital Signs Temp 36.4 C 05/23/20 15:56 Pulse 85 05/23/20 15:56 Resp 24 H 05/23/20 15:56 BP 132/80 05/23/20 15:56 Pulse Ox 97 05/23/20 15:56 I&O - Last 24 Hours: Intake & Output 05/23/20 05/23/20 05/23/20 06:59 14:59 22:59 Intake Total 500 560 700 Output Total 700 400 Balance -200 560 300 Lab Results Last 24 Hours: Laboratory Results - last 24 hr 05/22/20 05/22/20 05/23/20 Range/Units 17:01 22:06 05:40 WBC (3.98-10.04) K/mm3 RBC (3.98-5.22) M/mm3 Hgb (11.2-15.7) gm/dl Hct (34.1-44.9) % MCV (79.4-94.8) fl MCH (25.6-32.2) pg MCHC (32.2-35.5) g/dl RDW Std Deviation (36.4-46.3) fL Plt Count (182-369) K/mm3 MPV (9.4-12.3) fl Neut % (Auto) (34.0-71.1) % Lymph % (Auto) (19.3-51.7) % [place] % (Auto) (4.7-12.5) % Eos % (Auto) (0.7-5.8) Baso % (Auto) (0.1-1.2) % Neut # (Auto) (1.56-6.13) K/mm3 Lymph # (Auto) (1.18-3.74) K/mm3 [place] # (Auto) (0.24-0.36) K/mm3 Eos # (Auto) (0.04-0.36) K/mm3 Baso # (Auto) (0.01-0.08) K/mm3 Manual Slide Review D-Dimer, Quantitative (0.19-0.50) mg/L Sodium (136-145) mEq/L Potassium (3.5-5.1) mEq/L Chloride (98-107) mEq/L Carbon Dioxide (21-32) mEq/L Anion Gap (5-15) BUN (7-18) mg/dL Creatinine (0.55-1.02) mg/dL Est Cr Clr Drug Dosing mL/min Estimated GFR (MDRD) (>60) mL/min BUN/Creatinine Ratio (14-18) Glucose (74-106) mg/dL POC Glucose 204 H 177 H 155 H (70-105) mg/dL Lactic Acid (0.4-2.0) mmol/L Calcium (8.5-10.1) mg/dL Magnesium (1.8-2.4) mg/dl C-Reactive Protein (<1.0) mg/dL 05/23/20 05/23/20 05/23/20 Range/Units 06:45 06:45 06:45 WBC 5.17 (3.98-10.04) K/mm3 RBC 4.72 (3.98-5.22) M/mm3 Hgb 12.8 (11.2-15.7) gm/dl Hct 41.2 (34.1-44.9) % MCV 87.3 (79.4-94.8) fl MCH 27.1 (25.6-32.2) pg MCHC 31.1 L (32.2-35.5) g/dl RDW Std Deviation 41.6 (36.4-46.3) fL Plt Count 430 H D (182-369) K/mm3 MPV 9.2 L (9.4-12.3) fl Neut % (Auto) 71.5 H (34.0-71.1) % Lymph % (Auto) 18.4 L (19.3-51.7) % [place] % (Auto) 9.3 (4.7-12.5) % Eos % (Auto) 0 L (0.7-5.8) Baso % (Auto) 0.2 (0.1-1.2) % Neut # (Auto) 3.70 (1.56-6.13) K/mm3 Lymph # (Auto) 0.95 L (1.18-3.74) K/mm3 [place] # (Auto) 0.48 H (0.24-0.36) K/mm3 Eos # (Auto) 0.00 L (0.04-0.36) K/mm3 Baso # (Auto) 0.01 (0.01-0.08) K/mm3 Manual Slide Review Abnormal smear D-Dimer, Quantitative 0.64 H (0.19-0.50) mg/L Sodium 144 (136-145) mEq/L Potassium 3.9 (3.5-5.1) mEq/L Chloride 109 H (98-107) mEq/L Carbon Dioxide 24 (21-32) mEq/L Anion Gap 14.9 (5-15) BUN 13 (7-18) mg/dL Creatinine 0.7 (0.55-1.02) mg/dL Est Cr Clr Drug Dosing 112.47 mL/min Estimated GFR (MDRD) > 60 (>60) mL/min BUN/Creatinine Ratio 18.6 H (14-18) Glucose 166 H (74-106) mg/dL POC Glucose (70-105) mg/dL Lactic Acid (0.4-2.0) mmol/L Calcium 8.9 (8.5-10.1) mg/dL Magnesium 2.0 (1.8-2.4) mg/dl C-Reactive Protein 3.4 H* (<1.0) mg/dL 05/23/20 05/23/20 Range/Units 06:45 11:35 WBC (3.98-10.04) K/mm3 RBC (3.98-5.22) M/mm3 Hgb (11.2-15.7) gm/dl Hct (34.1-44.9) % MCV (79.4-94.8) fl MCH (25.6-32.2) pg MCHC (32.2-35.5) g/dl RDW Std Deviation (36.4-46.3) fL Plt Count (182-369) K/mm3 MPV (9.4-12.3) fl Neut % (Auto) (34.0-71.1) % Lymph % (Auto) (19.3-51.7) % [place] % (Auto) (4.7-12.5) % Eos % (Auto) (0.7-5.8) Baso % (Auto) (0.1-1.2) % Neut # (Auto) (1.56-6.13) K/mm3 Lymph # (Auto) (1.18-3.74) K/mm3 [place] # (Auto) (0.24-0.36) K/mm3 Eos # (Auto) (0.04-0.36) K/mm3 Baso # (Auto) (0.01-0.08) K/mm3 Manual Slide Review D-Dimer, Quantitative (0.19-0.50) mg/L Sodium (136-145) mEq/L Potassium (3.5-5.1) mEq/L Chloride (98-107) mEq/L Carbon Dioxide (21-32) mEq/L Anion Gap (5-15) BUN (7-18) mg/dL Creatinine (0.55-1.02) mg/dL Est Cr Clr Drug Dosing mL/min Estimated GFR (MDRD) (>60) mL/min BUN/Creatinine Ratio (14-18) Glucose (74-106) mg/dL POC Glucose 175 H (70-105) mg/dL Lactic Acid 0.8 (0.4-2.0) mmol/L Calcium (8.5-10.1) mg/dL Magnesium (1.8-2.4) mg/dl C-Reactive Protein (<1.0) mg/dL Brian Results Last 24 Hours: Microbiology 05/21/20 05:30 Aerobic Blood Culture - Preliminary Blood - Venous - Lab Draw NO GROWTH AFTER 2 DAYS Anaerobic Blood Culture - Preliminary NO GROWTH AFTER 2 DAYS 05/21/20 05:30 Aerobic Blood Culture - Preliminary Blood - Venous NO GROWTH AFTER 2 DAYS Anaerobic Blood Culture - Preliminary NO GROWTH AFTER 2 DAYS Med Orders - Current: Current Medications Albuterol (Proventil Hfa) 0 gm INH Q2H PRN PRN Reason: SOB/WHEEZE Last Admin: 05/23/20 15:09 Dose: 2 puff Documented by: Aspirin (Halfprin) 81 mg PO DAILY [facility] Last Admin: 05/23/20 09:20 Dose: 81 mg Documented by: Dexamethasone (Dexamethasone) 6 mg PO DAILY [facility] Last Admin: 05/23/20 09:21 Dose: 6 mg Documented by: Remdesivir 100 mg/ Sodium (Chloride) 100 mls @ 100 mls/hr IV Q24H [facility] Stop: 05/25/20 10:59 Last Admin: 05/23/20 09:25 Dose: 100 mls/hr Documented by: Azithromycin 500 mg/ Sodium (Chloride) 250 mls @ 250 mls/hr IV Q24H [facility] Stop: 05/23/20 17:59 Last Admin: 05/22/20 17:09 Dose: 250 mls/hr Documented by: Ceftriaxone Sodium 2 gm/ (Sodium Chloride) 100 mls @ 200 mls/hr IV Q24H [facility] Last Admin: 05/22/20 18:17 Dose: 200 mls/hr Documented by: Insulin Human Regular (Humulin R) 0 unit SUBCUT QIDACANDBED [facility]; Protocol Last Admin: 05/23/20 11:42 Dose: 1 unit Documented by: Rivaroxaban (Xarelto) 15 mg PO BID [facility] Last Admin: 05/23/20 11:39 Dose: 15 mg Documented by: Sodium Chloride (Saline Flush) 10 ml FLUSH ONETIME PRN PRN Reason: Keep Vein Open Last Admin: 05/21/20 07:41 Dose: 10 ml Documented by: Discontinued Medications Dexamethasone (Dexamethasone) 6 mg IV ONETIME [facility] Stop: 05/21/20 06:50 Last Admin: 05/21/20 07:17 Dose: 6 mg Documented by: Sodium Chloride (Normal Saline) 1,000 mls @ 75 mls/hr IV ASDIRECTED [facility] Last Admin: 05/21/20 07:50 Dose: 75 mls/hr Documented by: Sodium Chloride (Normal Saline) 45 mls @ 40 mls/hr IV ASDIRECTED [facility] Last Admin: 05/21/20 07:41 Dose: 40 mls/hr Documented by: Remdesivir 200 mg/ Sodium (Chloride) 250 mls @ 250 mls/hr IV ONETIME ONE Stop: 05/21/20 09:59 Last Admin: 05/21/20 09:05 Dose: 250 mls/hr Documented by: Insulin Human Regular (Humulin R) 0 unit SUBCUT [facility]; Protocol Last Admin: 05/22/20 10:06 Dose: Not Given Documented by: Iopamidol (Isovue-300 (61%)) 100 ml IVPUSH ONETIME ONE Stop: 05/21/20 07:07 Last Admin: 05/21/20 07:41 Dose: Not Given Documented by: Iopamidol (Isovue-370 (76%)) 100 ml IVPUSH ONETIME ONE Stop: 05/21/20 07:43 Last Admin: 05/21/20 07:44 Dose: 100 ml Documented by: Rivaroxaban (Xarelto) 15 mg PO ONETIME [facility] Stop: 05/21/20 08:24 Last Admin: 05/21/20 08:36 Dose: 15 mg Documented by: [facility] Last Admin: 05/22/20 17:10 Dose: 15 mg Documented by: Sepsis Event Note - Focused Exam Vital Signs: Vital Signs Temp Pulse Resp BP Pulse Ox Pulse Ox 05/23/20 15:56 36.4 C 85 24 H 132/80 97 05/23/20 15:10 95 05/23/20 11:41 36.4 C 75 22 H 120/86 96 05/23/20 09:17 36.4 C 88 22 H 114/53 L 95 05/23/20 08:38 95 05/23/20 05:38 36.8 C 76 20 124/86 90 L - Problem List & Annotations (1) COVID-19 SNOMED Code(s): 481717138 Code(s): U07.1 - COVID-19 Status: Acute Priority: High Current Visit: Yes (2) Hyperglycemia due to type 2 diabetes mellitus SNOMED Code(s): 131468818734091, 944351538045649 Code(s): E11.65 - TYPE 2 DIABETES MELLITUS WITH HYPERGLYCEMIA Status: Acute Priority: High Current Visit: Yes (3) Pulmonary embolus SNOMED Code(s): 60532746 Code(s): I26.99 - OTHER PULMONARY EMBOLISM WITHOUT ACUTE COR PULMONALE Status: Acute Priority: High Current Visit: Yes Qualifiers: Pulmonary embolism type: unspecified Chronicity: acute Acute cor pulmonale presence: unspecified Qualified Code(s): I26.99 - Other pulmonary embolism without acute cor pulmonale (4) Abdominal pain SNOMED Code(s): 03164364 Code(s): R10.9 - UNSPECIFIED ABDOMINAL PAIN Status: Acute Priority: High Current Visit: Yes Qualifiers: Abdominal location: right upper quadrant Qualified Code(s): R10.11 - Right upper quadrant pain - My Orders Last 24 Hours: My Active Orders 05/23/20 11:15 Rivaroxaban [Xarelto] 15 mg PO BID 05/24/20 06:00 BMP [BASIC METABOLIC PANEL,BMP] [CHEM] DAILY CBC WITH AUTO DIFF [HEME] DAILY CRP [C-REACTIVE PROTEIN] [CHEM] DAILY D Dimer [D-DIMER QUANTITATIVE] [COAG] DAILY MAGNESIUM [CHEM] DAILY 05/25/20 06:00 BMP [BASIC METABOLIC PANEL,BMP] [CHEM] DAILY CBC WITH AUTO DIFF [HEME] DAILY CRP [C-REACTIVE PROTEIN] [CHEM] DAILY D Dimer [D-DIMER QUANTITATIVE] [COAG] DAILY 05/26/20 06:00 BMP [BASIC METABOLIC PANEL,BMP] [CHEM] DAILY CBC WITH AUTO DIFF [HEME] DAILY CRP [C-REACTIVE PROTEIN] [CHEM] DAILY D Dimer [D-DIMER QUANTITATIVE] [COAG] DAILY - Plan Plan:: Covid-19 PNA complicated by PEs, continue AC. Will need coupon for Xarelto at [place]. Will request PCP follow up at [facility]. Additionally patient also has a healthcare provider in [place].
[2020-05-23] MEDS: Azithromycin 500 MG in Sodium Chloride 0.9% 250 ML IV SCH (17:11)
[2020-05-23] MEDS: cefTRIAXone 2 GM in Sodium Chloride 0.9% 100 ML IV SCH (18:14)
[2020-05-24] MEDS: Albuterol 6.7 GM Inhaler INH PRN ×4 (06:10→21:05)
[2020-05-24] MEDS: Insulin Regular, Human 100 Units/ML 3 ML Vial SUBCUT SCH ×4 (07:52→22:00)
[2020-05-24] MEDS: Aspirin 81 MG Tab.EC PO SCH (09:11)
[2020-05-24] MEDS: Dexamethasone 4 MG Tab PO SCH (09:11)
[2020-05-24] MEDS: Rivaroxaban 15 MG Tab PO SCH ×2 (09:11→22:00)
[2020-05-24] MEDS: REMDESIVIR 100 MG in Sodium Chloride 0.9% 100 ML IV SCH (09:13)
--- NOTE | 2020-05-24 09:57 | PCM.PN ---
- General Info Date of Service: 05/24/20 Admission Dx/Problem (Free Text): Admission Diagnosis/Problem Admission Diagnosis/Problem Pneumonia Subjective Update: Patient states that she is feeling good today. Needs encouragement while doing her incentive spirometer. Is currently on 2 L of oxygen per nasal cannula. Functional Status: Reports: Pain Controlled, Tolerating Diet, Ambulating, Urinating, Incentive Spirometry - Review of Systems General: Reports: No Symptoms HEENT: Reports: No Symptoms Pulmonary: Reports: Cough. Denies: Sputum Cardiovascular: Reports: No Symptoms Gastrointestinal: Reports: No Symptoms Genitourinary: Reports: No Symptoms Musculoskeletal: Reports: No Symptoms Skin: Reports: No Symptoms Neurological: Reports: No Symptoms Psychiatric: Reports: No Symptoms - Patient Data Vitals - Most Recent: Last Vital Signs Temp 97.3 F 05/24/20 03:21 Pulse 63 05/24/20 03:21 Resp 16 05/24/20 03:21 BP 118/80 05/24/20 03:21 Pulse Ox 95 05/24/20 08:49 Weight - Most Recent: 258 lb 9.6 oz I&O - Last 24 Hours: Intake & Output 05/23/20 05/24/20 05/24/20 22:59 06:59 14:59 Intake Total 760 650 Output Total 400 Balance 360 650 Lab Results Last 24 Hours: Laboratory Results - last 24 hr 05/23/20 05/23/20 05/23/20 Range/Units 11:35 17:18 22:17 WBC (3.98-10.04) K/mm3 RBC (3.98-5.22) M/mm3 Hgb (11.2-15.7) gm/dl Hct (34.1-44.9) % MCV (79.4-94.8) fl MCH (25.6-32.2) pg MCHC (32.2-35.5) g/dl RDW Std Deviation (36.4-46.3) fL Plt Count (182-369) K/mm3 MPV (9.4-12.3) fl Neut % (Auto) (34.0-71.1) % Lymph % (Auto) (19.3-51.7) % [place] % (Auto) (4.7-12.5) % Eos % (Auto) (0.7-5.8) Baso % (Auto) (0.1-1.2) % Neut # (Auto) (1.56-6.13) K/mm3 Lymph # (Auto) (1.18-3.74) K/mm3 [place] # (Auto) (0.24-0.36) K/mm3 Eos # (Auto) (0.04-0.36) K/mm3 Baso # (Auto) (0.01-0.08) K/mm3 Manual Slide Review D-Dimer, Quantitative (0.19-0.50) mg/L Sodium (136-145) mEq/L Potassium (3.5-5.1) mEq/L Chloride (98-107) mEq/L Carbon Dioxide (21-32) mEq/L Anion Gap (5-15) BUN (7-18) mg/dL Creatinine (0.55-1.02) mg/dL Est Cr Clr Drug Dosing mL/min Estimated GFR (MDRD) (>60) mL/min BUN/Creatinine Ratio (14-18) Glucose (74-106) mg/dL POC Glucose 175 H 230 H 209 H (70-105) mg/dL Calcium (8.5-10.1) mg/dL Magnesium (1.8-2.4) mg/dl C-Reactive Protein (<1.0) mg/dL 05/24/20 05/24/20 05/24/20 Range/Units 05:12 05:12 05:12 WBC 6.70 (3.98-10.04) K/mm3 RBC 4.69 (3.98-5.22) M/mm3 Hgb 12.7 (11.2-15.7) gm/dl Hct 40.8 (34.1-44.9) % MCV 87.0 (79.4-94.8) fl MCH 27.1 (25.6-32.2) pg MCHC 31.1 L (32.2-35.5) g/dl RDW Std Deviation 41.2 (36.4-46.3) fL Plt Count 506 H D (182-369) K/mm3 MPV 9.5 (9.4-12.3) fl Neut % (Auto) 68.5 (34.0-71.1) % Lymph % (Auto) 20.0 (19.3-51.7) % [place] % (Auto) 10.1 (4.7-12.5) % Eos % (Auto) 0.1 L (0.7-5.8) Baso % (Auto) 0.3 (0.1-1.2) % Neut # (Auto) 4.58 (1.56-6.13) K/mm3 Lymph # (Auto) 1.34 (1.18-3.74) K/mm3 [place] # (Auto) 0.68 H (0.24-0.36) K/mm3 Eos # (Auto) 0.01 L (0.04-0.36) K/mm3 Baso # (Auto) 0.02 (0.01-0.08) K/mm3 Manual Slide Review Abnormal smear D-Dimer, Quantitative 0.47 (0.19-0.50) mg/L Sodium 144 (136-145) mEq/L Potassium 3.9 (3.5-5.1) mEq/L Chloride 109 H (98-107) mEq/L Carbon Dioxide 24 (21-32) mEq/L Anion Gap 14.9 (5-15) BUN 14 (7-18) mg/dL Creatinine 0.6 (0.55-1.02) mg/dL Est Cr Clr Drug Dosing 131.22 mL/min Estimated GFR (MDRD) > 60 (>60) mL/min BUN/Creatinine Ratio 23.3 H (14-18) Glucose 160 H (74-106) mg/dL POC Glucose (70-105) mg/dL Calcium 8.6 (8.5-10.1) mg/dL Magnesium 1.8 (1.8-2.4) mg/dl C-Reactive Protein 2.1 H* (<1.0) mg/dL 05/24/20 Range/Units 06:24 WBC (3.98-10.04) K/mm3 RBC (3.98-5.22) M/mm3 Hgb (11.2-15.7) gm/dl Hct (34.1-44.9) % MCV (79.4-94.8) fl MCH (25.6-32.2) pg MCHC (32.2-35.5) g/dl RDW Std Deviation (36.4-46.3) fL Plt Count (182-369) K/mm3 MPV (9.4-12.3) fl Neut % (Auto) (34.0-71.1) % Lymph % (Auto) (19.3-51.7) % [place] % (Auto) (4.7-12.5) % Eos % (Auto) (0.7-5.8) Baso % (Auto) (0.1-1.2) % Neut # (Auto) (1.56-6.13) K/mm3 Lymph # (Auto) (1.18-3.74) K/mm3 [place] # (Auto) (0.24-0.36) K/mm3 Eos # (Auto) (0.04-0.36) K/mm3 Baso # (Auto) (0.01-0.08) K/mm3 Manual Slide Review D-Dimer, Quantitative (0.19-0.50) mg/L Sodium (136-145) mEq/L Potassium (3.5-5.1) mEq/L Chloride (98-107) mEq/L Carbon Dioxide (21-32) mEq/L Anion Gap (5-15) BUN (7-18) mg/dL Creatinine (0.55-1.02) mg/dL Est Cr Clr Drug Dosing mL/min Estimated GFR (MDRD) (>60) mL/min BUN/Creatinine Ratio (14-18) Glucose (74-106) mg/dL POC Glucose 140 H (70-105) mg/dL Calcium (8.5-10.1) mg/dL Magnesium (1.8-2.4) mg/dl C-Reactive Protein (<1.0) mg/dL Brian Results Last 24 Hours: Microbiology 05/21/20 05:30 Aerobic Blood Culture - Preliminary Blood - Venous - Lab Draw NO GROWTH AFTER 3 DAYS Anaerobic Blood Culture - Preliminary NO GROWTH AFTER 3 DAYS 05/21/20 05:30 Aerobic Blood Culture - Preliminary Blood - Venous NO GROWTH AFTER 3 DAYS Anaerobic Blood Culture - Preliminary NO GROWTH AFTER 3 DAYS Med Orders - Current: Current Medications Albuterol (Proventil Hfa) 0 gm INH Q2H PRN PRN Reason: SOB/WHEEZE Last Admin: 05/24/20 08:48 Dose: 2 puff Documented by: Aspirin (Halfprin) 81 mg PO DAILY [facility] Last Admin: 05/24/20 09:11 Dose: 81 mg Documented by: Dexamethasone (Dexamethasone) 6 mg PO DAILY [facility] Last Admin: 05/24/20 09:11 Dose: 6 mg Documented by: Remdesivir 100 mg/ Sodium (Chloride) 100 mls @ 100 mls/hr IV Q24H [facility] Stop: 05/25/20 10:59 Last Admin: 05/24/20 09:13 Dose: 100 mls/hr Documented by: Ceftriaxone Sodium 2 gm/ (Sodium Chloride) 100 mls @ 200 mls/hr IV Q24H [facility] Last Admin: 05/23/20 18:14 Dose: 200 mls/hr Documented by: Insulin Human Regular (Humulin R) 0 unit SUBCUT QIDACANDBED [facility]; Protocol Last Admin: 05/24/20 07:52 Dose: Not Given Documented by: Rivaroxaban (Xarelto) 15 mg PO BID [facility] Last Admin: 05/24/20 09:11 Dose: 15 mg Documented by: Sodium Chloride (Saline Flush) 10 ml FLUSH ONETIME PRN PRN Reason: Keep Vein Open Last Admin: 05/21/20 07:41 Dose: 10 ml Documented by: Discontinued Medications Dexamethasone (Dexamethasone) [address] [facility] Stop: 05/21/20 06:50 Last Admin: 05/21/20 07:17 Dose: 6 mg Documented by: Sodium Chloride (Normal Saline) 1,000 mls @ 75 mls/hr IV ASDIRECTED [facility] Last Admin: 05/21/20 07:50 Dose: 75 mls/hr Documented by: Sodium Chloride (Normal Saline) 45 mls @ 40 mls/hr IV ASDIRECTED [facility] Last Admin: 05/21/20 07:41 Dose: 40 mls/hr Documented by: Remdesivir 200 mg/ Sodium (Chloride) 250 mls @ 250 mls/hr IV ONETIME ONE Stop: 05/21/20 09:59 Last Admin: 05/21/20 09:05 Dose: 250 mls/hr Documented by: Azithromycin 500 mg/ Sodium (Chloride) 250 mls @ 250 mls/hr IV Q24H [facility] Stop: 05/23/20 17:59 Last Admin: 05/23/20 17:11 Dose: 250 mls/hr Documented by: Insulin Human Regular (Humulin R) [facility] Protocol Last Admin: 05/22/20 10:06 Dose: Not Given Documented by: Iopamidol (Isovue-300 (61%)) 100 ml IVPUSH ONETIME ONE Stop: 05/21/20 07:07 Last Admin: 05/21/20 07:41 Dose: Not Given Documented by: Iopamidol (Isovue-370 (76%)) 100 ml IVPUSH ONETIME ONE Stop: 05/21/20 07:43 Last Admin: 05/21/20 07:44 Dose: 100 ml Documented by: Rivaroxaban (Xarelto) 15 mg PO ONETIME [facility] Stop: 05/21/20 08:24 Last Admin: 05/21/20 08:36 Dose: 15 mg Documented by: Rivaroxaban (Xarelto) 15 mg PO WITHDINNER [facility] Last Admin: 05/22/20 17:10 Dose: 15 mg Documented by: - Exam Quality Assessment: Supplemental Oxygen (2 L per nasal cannula), DVT Prophylaxis (Xarelto) General: Alert, Oriented, Cooperative, No Acute Distress HEENT: Pupils Equal, Pupils Reactive, Mucous Membr. Moist/[place] Neck: Supple, Trachea Midline. No: Lymphadenopathy Lungs: Clear to Auscultation, Normal Respiratory Effort Cardiovascular: Regular Rate, Regular Rhythm, No Murmurs GI/Abdominal Exam: Normal Bowel Sounds, Soft, Non-Tender, No Distention (Female) Exam: Deferred Back Exam: Normal Inspection, Full Range of Motion Extremities: Normal Inspection, Normal Range of Motion, Non-Tender, No Pedal Edema, Normal Capillary Refill Peripheral Pulses: 2+: Radial (L), Radial (R), Dorsalis Pedis (L), Dorsalis Pedis (R) Skin: Warm, Dry, Intact Neurological: No New Focal Deficit Psy/Mental Status: Alert, Normal Affect, Normal Mood Sepsis Event Note - Evaluation Sepsis Screening Result: No Definite Risk - Focused Exam Vital Signs: Vital Signs Temp Pulse Resp BP Pulse Ox Pulse Ox 05/24/20 08:49 95 05/24/20 06:10 97 05/24/20 03:21 97.3 F 63 16 118/80 93 L 05/23/20 22:16 98.2 F 56 L 18 120/81 95 - Problem List & Annotations (1) COVID-19 SNOMED Code(s): 612103795 Code(s): U07.1 - COVID-19 Status: Acute Priority: High Current Visit: Yes (2) Hyperglycemia due to type 2 diabetes mellitus SNOMED Code(s): 222750439759596, 164521604167744 Code(s): E11.65 - TYPE 2 DIABETES MELLITUS WITH HYPERGLYCEMIA Status: Acute Priority: High Current Visit: Yes (3) Pulmonary embolus SNOMED Code(s): 08659159 Code(s): I26.99 - OTHER PULMONARY EMBOLISM WITHOUT ACUTE COR PULMONALE Status: Acute Priority: High Current Visit: Yes Qualifiers: Pulmonary embolism type: unspecified Chronicity: acute Acute cor pulmonale presence: unspecified Qualified Code(s): I26.99 - Other pulmonary embolism without acute cor pulmonale (4) Abdominal pain SNOMED Code(s): 00999997 Code(s): R10.9 - UNSPECIFIED ABDOMINAL PAIN Status: Acute Priority: High Current Visit: Yes Qualifiers: Abdominal location: right upper quadrant Qualified Code(s): R10.11 - Right upper quadrant pain - Problem List Review Problem List Initiated/Reviewed/Updated: Yes - Assessment Assessment:: 05/23/20 * Receiving Xarelto twice daily for PE * Has received 2 units of convalescent plasma * Currently receiving remdesivir and dexamethasone daily * Currently receiving Rocephin 2 g IV daily and Zithromax 500 mg daily * Continues on 5 L of oxygen per nasal cannula vital signs have otherwise been stable and she remains afebrile the past 24 hours. * Blood cultures are showing no growth after 2 days. * D-dimer 0.64 which is down from 0.68 * Incentive spirometer and flutter valve at the bedside. 05/24/20 * Xarelto to treat PE * Remdesivir and dexamethasone for the treatment of Covid * Rocephin and Zithromax daily to treat pneumonia * Currently on 2 L of oxygen per nasal cannula * D-dimer 0.47 which is down from 0.64, CRP 2.1 which is down from 3.4 - Plan Plan:: Covid-19 PNA complicated by PEs, continue AC. Will need coupon for Xarelto at [place]. Will request PCP follow up at [facility]. Additionally patient also has a healthcare provider in [place]. 05/24/20 * Continue Xarelto * Continue remdesivir and dexamethasone * Continue Rocephin and Zithromax * Encourage increased activity independently in her room * Incentive spirometer and flutter valve every 1 hour while awake * Respiratory care to continue titrating oxygen * Accu-Cheks 4 times daily before meals and at bedtime with sliding scale coverage * Repeat labs in the a.m. * Plan for discharge once patient has received 5 days of remdesivir and is titrated to room air.
[2020-05-24] MEDS: cefTRIAXone 2 GM in Sodium Chloride 0.9% 100 ML IV SCH (17:24)
[2020-05-25] MEDS ORDERED: Potassium Chloride 20 MEQ Tab.ER PO ONE (08:00)
[2020-05-25] MEDS: Dexamethasone 4 MG Tab PO SCH (09:11)
[2020-05-25] MEDS: Rivaroxaban 15 MG Tab PO SCH ×2 (09:13→22:14)
[2020-05-25] MEDS: Aspirin 81 MG Tab.EC PO SCH (09:13)
[2020-05-25] MEDS: Insulin Regular, Human 100 Units/ML 3 ML Vial SUBCUT SCH ×4 (09:15→22:12)
[2020-05-25] MEDS: REMDESIVIR 100 MG in Sodium Chloride 0.9% 100 ML IV SCH (09:17)
--- NOTE | 2020-05-25 10:06 | PCM.PN ---
- General Info Date of Service: 05/25/20 Admission Dx/Problem (Free Text): Admission Diagnosis/Problem Admission Diagnosis/Problem Pneumonia Subjective Update: Patient reports feeling well. Denies a cough. Is on room air. Functional Status: Reports: Pain Controlled, Tolerating Diet, Ambulating, Urinating, Incentive Spirometry - Review of Systems General: Reports: No Symptoms HEENT: Reports: No Symptoms Pulmonary: Reports: No Symptoms Cardiovascular: Reports: No Symptoms Gastrointestinal: Reports: No Symptoms Genitourinary: Reports: No Symptoms Musculoskeletal: Reports: No Symptoms Skin: Reports: No Symptoms Neurological: Reports: No Symptoms Psychiatric: Reports: No Symptoms - Patient Data Vitals - Most Recent: Last Vital Signs Temp 97.5 F 05/25/20 04:49 Pulse 57 L 05/25/20 04:49 Resp 16 05/25/20 04:49 BP 124/77 05/25/20 04:49 Pulse Ox 93 L 05/25/20 06:04 Weight - Most Recent: 259 lb 11.2 oz I&O - Last 24 Hours: Intake & Output 05/24/20 05/25/20 05/25/20 22:59 06:59 14:59 Intake Total 600 600 Output Total 100 Balance 500 600 Lab Results Last 24 Hours: Laboratory Results - last 24 hr 05/24/20 05/24/20 05/24/20 Range/Units 11:30 17:20 21:58 WBC (3.98-10.04) K/mm3 RBC (3.98-5.22) M/mm3 Hgb (11.2-15.7) gm/dl Hct (34.1-44.9) % MCV (79.4-94.8) fl MCH (25.6-32.2) pg MCHC (32.2-35.5) g/dl RDW Std Deviation (36.4-46.3) fL Plt Count (182-369) K/mm3 MPV (9.4-12.3) fl Neut % (Auto) (34.0-71.1) % Lymph % (Auto) (19.3-51.7) % [place] % (Auto) (4.7-12.5) % Eos % (Auto) (0.7-5.8) Baso % (Auto) (0.1-1.2) % Neut # (Auto) (1.56-6.13) K/mm3 Lymph # (Auto) (1.18-3.74) K/mm3 [place] # (Auto) (0.24-0.36) K/mm3 Eos # (Auto) (0.04-0.36) K/mm3 Baso # (Auto) (0.01-0.08) K/mm3 Manual Slide Review D-Dimer, Quantitative (0.19-0.50) mg/L Sodium (136-145) mEq/L Potassium (3.5-5.1) mEq/L Chloride (98-107) mEq/L Carbon Dioxide (21-32) mEq/L Anion Gap (5-15) BUN (7-18) mg/dL Creatinine (0.55-1.02) mg/dL Est Cr Clr Drug Dosing mL/min Estimated GFR (MDRD) (>60) mL/min BUN/Creatinine Ratio (14-18) Glucose (74-106) mg/dL POC Glucose 167 H 246 H 224 H (70-105) mg/dL Calcium (8.5-10.1) mg/dL C-Reactive Protein (<1.0) mg/dL 05/25/20 05/25/20 05/25/20 Range/Units 05:21 05:21 05:21 WBC 7.96 (3.98-10.04) K/mm3 RBC 4.91 (3.98-5.22) M/mm3 Hgb 13.4 (11.2-15.7) gm/dl Hct 42.2 (34.1-44.9) % MCV 85.9 (79.4-94.8) fl MCH 27.3 (25.6-32.2) pg MCHC 31.8 L (32.2-35.5) g/dl RDW Std Deviation 40.7 (36.4-46.3) fL Plt Count 521 H (182-369) K/mm3 MPV 9.5 (9.4-12.3) fl Neut % (Auto) 67.2 (34.0-71.1) % Lymph % (Auto) 21.9 (19.3-51.7) % [place] % (Auto) 9.0 (4.7-12.5) % Eos % (Auto) 0.1 L (0.7-5.8) Baso % (Auto) 0.3 (0.1-1.2) % Neut # (Auto) 5.35 (1.56-6.13) K/mm3 Lymph # (Auto) 1.74 (1.18-3.74) K/mm3 [place] # (Auto) 0.72 H (0.24-0.36) K/mm3 Eos # (Auto) 0.01 L (0.04-0.36) K/mm3 Baso # (Auto) 0.02 (0.01-0.08) K/mm3 Manual Slide Review Abnormal smear D-Dimer, Quantitative 0.50 (0.19-0.50) mg/L Sodium 143 (136-145) mEq/L Potassium 3.7 (3.5-5.1) mEq/L Chloride 108 H (98-107) mEq/L Carbon Dioxide 23 (21-32) mEq/L Anion Gap 15.7 H (5-15) BUN 13 (7-18) mg/dL Creatinine 0.7 (0.55-1.02) mg/dL Est Cr Clr Drug Dosing 112.47 mL/min Estimated GFR (MDRD) > 60 (>60) mL/min BUN/Creatinine Ratio 18.6 H (14-18) Glucose 141 H (74-106) mg/dL POC Glucose (70-105) mg/dL Calcium 8.7 (8.5-10.1) mg/dL C-Reactive Protein 1.4 H* (<1.0) mg/dL 05/25/20 Range/Units 05:57 WBC (3.98-10.04) K/mm3 RBC (3.98-5.22) M/mm3 Hgb (11.2-15.7) gm/dl Hct (34.1-44.9) % MCV (79.4-94.8) fl MCH (25.6-32.2) pg MCHC (32.2-35.5) g/dl RDW Std Deviation (36.4-46.3) fL Plt Count (182-369) K/mm3 MPV (9.4-12.3) fl Neut % (Auto) (34.0-71.1) % Lymph % (Auto) (19.3-51.7) % [place] % (Auto) (4.7-12.5) % Eos % (Auto) (0.7-5.8) Baso % (Auto) (0.1-1.2) % Neut # (Auto) (1.56-6.13) K/mm3 Lymph # (Auto) (1.18-3.74) K/mm3 [place] # (Auto) (0.24-0.36) K/mm3 Eos # (Auto) (0.04-0.36) K/mm3 Baso # (Auto) (0.01-0.08) K/mm3 Manual Slide Review D-Dimer, Quantitative (0.19-0.50) mg/L Sodium (136-145) mEq/L Potassium (3.5-5.1) mEq/L Chloride (98-107) mEq/L Carbon Dioxide (21-32) mEq/L Anion Gap (5-15) BUN (7-18) mg/dL Creatinine (0.55-1.02) mg/dL Est Cr Clr Drug Dosing mL/min Estimated GFR (MDRD) (>60) mL/min BUN/Creatinine Ratio (14-18) Glucose (74-106) mg/dL POC Glucose 141 H (70-105) mg/dL Calcium (8.5-10.1) mg/dL C-Reactive Protein (<1.0) mg/dL Brian Results Last 24 Hours: Microbiology 05/21/20 05:30 Aerobic Blood Culture - Preliminary Blood - Venous - Lab Draw NO GROWTH AFTER 4 DAYS Anaerobic Blood Culture - Preliminary NO GROWTH AFTER 4 DAYS 05/21/20 05:30 Aerobic Blood Culture - Preliminary Blood - Venous NO GROWTH AFTER 4 DAYS Anaerobic Blood Culture - Preliminary NO GROWTH AFTER 4 DAYS Med Orders - Current: Current Medications Albuterol (Proventil Hfa) 0 gm INH Q2H PRN PRN Reason: SOB/WHEEZE Last Admin: 05/24/20 21:05 Dose: 2 puff Documented by: Aspirin (Halfprin) 81 mg PO DAILY [facility] Last Admin: 05/25/20 09:13 Dose: 81 mg Documented by: Dexamethasone (Dexamethasone) 6 mg PO DAILY [facility] Stop: 05/30/20 09:01 Last Admin: 05/25/20 09:11 Dose: 6 mg Documented by: Remdesivir 100 mg/ Sodium (Chloride) 100 mls @ 100 mls/hr IV Q24H [facility] Stop: 05/25/20 10:59 Last Admin: 05/25/20 09:17 Dose: 100 mls/hr Documented by: Ceftriaxone Sodium 2 gm/ (Sodium Chloride) 100 mls @ 200 mls/hr IV Q24H [facility] Last Admin: 05/24/20 17:24 Dose: 200 mls/hr Documented by: Insulin Human Regular (Humulin R) 0 unit SUBCUT QIDACANDBED [facility]; Protocol Last Admin: 05/25/20 09:15 Dose: Not Given Documented by: Rivaroxaban (Xarelto) 15 mg PO BID [facility] Last Admin: 05/25/20 09:13 Dose: 15 mg Documented by: Sodium Chloride (Saline Flush) 10 ml FLUSH ONETIME PRN PRN Reason: Keep Vein Open Last Admin: 05/21/20 07:41 Dose: 10 ml Documented by: Discontinued Medications Dexamethasone (Dexamethasone) 6 mg IV ONETIME [facility] Stop: 05/21/20 06:50 Last Admin: 05/21/20 07:17 Dose: 6 mg Documented by: Sodium Chloride (Normal Saline) 1,000 mls @ 75 mls/hr IV ASDIRECTED [facility] Last Admin: 05/21/20 07:50 Dose: 75 mls/hr Documented by: Sodium Chloride (Normal Saline) 45 mls @ 40 mls/hr IV ASDIRECTED [facility] Last Admin: 05/21/20 07:41 Dose: 40 mls/hr Documented by: Remdesivir 200 mg/ Sodium (Chloride) 250 mls @ 250 mls/hr IV ONETIME ONE Stop: 05/21/20 09:59 Last Admin: 05/21/20 09:05 Dose: 250 mls/hr Documented by: Azithromycin 500 mg/ Sodium (Chloride) 250 mls @ 250 mls/hr IV Q24H [facility] Stop: 05/23/20 17:59 Last Admin: 05/23/20 17:11 Dose: 250 mls/hr Documented by: Insulin Human Regular (Humulin R) 0 unit SUBCUT TIDPC [facility]; Protocol Last Admin: 05/22/20 10:06 Dose: Not Given Documented by: Iopamidol (Isovue-300 (61%)) 100 ml IVPUSH ONETIME ONE Stop: 05/21/20 07:07 Last Admin: 05/21/20 07:41 Dose: Not Given Documented by: Iopamidol (Isovue-370 (76%)) 100 ml IVPUSH ONETIME ONE Stop: 05/21/20 07:43 Last Admin: 05/21/20 07:44 Dose: 100 ml Documented by: Potassium Chloride (Klor-Con M20) 40 meq PO ONETIME ONE Stop: 05/25/20 08:01 Last Admin: 05/25/20 09:13 Dose: 40 meq Documented by: Rivaroxaban (Xarelto) 15 mg PO ONETIME STA Stop: 05/21/20 08:24 Last Admin: 05/21/20 08:36 Dose: 15 mg Documented by: Rivaroxaban (Xarelto) 15 mg PO WITHDINNER [facility] Last Admin: 05/22/20 17:10 Dose: 15 mg Documented by: - Exam Quality Assessment: DVT Prophylaxis (Xarelto). No: Supplemental Oxygen General: Alert, Oriented, Cooperative, No Acute Distress HEENT: Pupils Equal, Pupils Reactive, Mucous Membr. Moist/[place] Neck: Supple, Trachea Midline. No: Lymphadenopathy Lungs: Clear to Auscultation, Normal Respiratory Effort Cardiovascular: Regular Rate, Regular Rhythm, No Murmurs GI/Abdominal Exam: Normal Bowel Sounds, Soft, Non-Tender, No Distention (Female) Exam: Deferred Back Exam: Normal Inspection, Full Range of Motion Extremities: Normal Inspection, Normal Range of Motion, Non-Tender, No Pedal Edema, Normal Capillary Refill Peripheral Pulses: 2+: Radial (L), Radial (R), Dorsalis Pedis (L), Dorsalis Pe dis (R) Skin: Warm, Dry, Intact Neurological: No New Focal Deficit Psy/Mental Status: Alert, Normal Affect, Normal Mood Sepsis Event Note - Evaluation Sepsis Screening Result: No Definite Risk - Focused Exam Vital Signs: Vital Signs Temp Pulse Resp BP Pulse Ox Pulse Ox 05/25/20 06:04 93 L 05/25/20 04:49 97.5 F 57 L 16 124/77 95 05/24/20 22:09 97.3 F 55 L 18 135/92 H 94 L - Problem List & Annotations (1) COVID-19 SNOMED Code(s): 130882355 Code(s): U07.1 - COVID-19 Status: Acute Priority: High Current Visit: Yes (2) Hyperglycemia due to type 2 diabetes mellitus SNOMED Code(s): 246143894083822, 558313788904316 Code(s): E11.65 - TYPE 2 DIABETES MELLITUS WITH HYPERGLYCEMIA Status: Acute Priority: High Current Visit: Yes (3) Pulmonary embolus SNOMED Code(s): 46236809 Code(s): I26.99 - OTHER PULMONARY EMBOLISM WITHOUT ACUTE COR PULMONALE Status: Acute Priority: High Current Visit: Yes Qualifiers: Pulmonary embolism type: unspecified Chronicity: acute Acute cor pulmonale presence: unspecified Qualified Code(s): I26.99 - Other pulmonary embolism without acute cor pulmonale (4) Abdominal pain SNOMED Code(s): 05145446 Code(s): R10.9 - UNSPECIFIED ABDOMINAL PAIN Status: Acute Priority: High Current Visit: Yes Qualifiers: Abdominal location: right upper quadrant Qualified Code(s): R10.11 - Right upper quadrant pain - Problem List Review Problem List Initiated/Reviewed/Updated: Yes - Assessment Assessment:: 05/23/20 * Receiving Xarelto twice daily for PE * Has received 2 units of convalescent plasma * Currently receiving remdesivir and dexamethasone daily * Currently receiving Rocephin 2 g IV daily and Zithromax 500 mg daily * Continues on 5 L of oxygen per nasal cannula vital signs have otherwise been stable and she remains afebrile the past 24 hours. * Blood cultures are showing no growth after 2 days. * D-dimer 0.64 which is down from 0.68 * Incentive spirometer and flutter valve at the bedside. 05/24/20 * Xarelto to treat PE * Remdesivir and dexamethasone for the treatment of Covid * Rocephin and Zithromax daily to treat pneumonia * Currently on 2 L of oxygen per nasal cannula * D-dimer 0.47 which is down from 0.64, CRP 2.1 which is down from 3.4 05/25/20 * Currently on room air * Rocephin and Zithromax for pneumonia * Day 5 of remdesivir and dexamethasone * Incentive spirometry and flutter valve * Blood cultures continue to show no growth * Up independently in her room with increased activity encouraged - Plan Plan:: Covid-19 PNA complicated by PEs, continue AC. [facility] need [facility]. Will request PCP follow up at [facility] [place]. Additionally patient also has a healthcare provider in [place]. 05/24/20 * Continue Xarelto * Continue remdesivir and dexamethasone * Continue Rocephin and Zithromax * Encourage increased activity independently in her room * Incentive spirometer and flutter valve every 1 hour while awake * Respiratory care to continue titrating oxygen * Accu-Cheks 4 times daily before meals and at bedtime with sliding scale coverage * Repeat labs in the a.m. * Plan for discharge once patient has received 5 days of remdesivir and is titrated to room air. 05/25/20 * Continue Xarelto * Today is the final day of remdesivir. Continue dexamethasone x10 full day course * Continue increasing activity in the room * Incentive spirometer and flutter valve every 1 hour while awake * Will repeat lab work tomorrow morning * Will plan for discharge to home tomorrow morning. She will need to be continued on Xarelto for current diagnosis of PE.
[2020-05-25] MEDS: cefTRIAXone 2 GM in Sodium Chloride 0.9% 100 ML IV SCH (17:08)
[2020-05-26] MEDS: Insulin Regular, Human 100 Units/ML 3 ML Vial SUBCUT SCH ×2 (06:14→11:37)
[2020-05-26] MEDS: Dexamethasone 4 MG Tab PO SCH (09:06)
[2020-05-26] MEDS: Aspirin 81 MG Tab.EC PO SCH (09:06)
[2020-05-26] MEDS: Rivaroxaban 15 MG Tab PO SCH (09:06)
--- NOTE | 2020-05-26 09:58 | PCM.DCSUM1 ---
Discharge Summary - Hospital Course HPI Initial Comments: Mrs. Carrera is a very pleasant 24-year-old woman who now presents the ED with complications of COVID-19. She states that she developed a fever on , 05/12/2020, then a frontal headache, nonproductive cough, and sore throat on 05/13/2020. She has been experiencing central chest pain when she hiccups. She was tested for the SARS-CoV-2 virus on 05/14/2020, receiving a positive result on 05/17/2020. She then developed dyspnea, primarily with exertion, but even some at rest, this past , 05/19/2020. She has had some nausea, but no recent vomiting, constipation, diarrhea, or urinary symptoms. The patient states that she has been taking [id number] Robitussin, DayQuil, NyQuil, and Delsym, without any significant relief of her symptoms. Here in the ED, the patient is initially found to be mildly tachycardic at 102 bpm and tachypneic at 32 rpm. She is afebrile, saturating 75% on room air, 88% on 3 L of oxygen per nasal cannula. Prior to 05/12/2020, the patient denies having a recent fever, chills, sore throat, ear pain, nasal or sinus congestion, cough, dyspnea, chest pain, palpitations, nausea, vomiting, constipation, diarrhea, abdominal pain, urinary symptoms, recent weight gain or weight loss, recent bloody bowel movements or black bowel movements, recent joint aches, headaches, or rashes. The patient's PCP is Flory Malhotra. She did not receive an influenza vaccine this season. Diagnosis: Stroke: No - Discharge Data Discharge Date: 05/26/20 (Admit date: 05/21/20) Discharge Disposition: Home, Self-Care 01 Condition: Good - Referral to Home Health Primary Care Physician: PCP None - Discharge Diagnosis/Problem(s) (1) COVID-19 SNOMED Code(s): 516563418 ICD Code: U07.1 - COVID-19 Status: Acute Priority: High Current Visit: Yes (2) Hyperglycemia due to type 2 diabetes mellitus SNOMED Code(s): 417948939741456, 850703343948860 ICD Code: E11.65 - TYPE 2 DIABETES MELLITUS WITH HYPERGLYCEMIA Status: Acute Priority: High Current Visit: Yes (3) Pulmonary embolus SNOMED Code(s): 87196105 ICD Code: I26.99 - OTHER PULMONARY EMBOLISM WITHOUT ACUTE COR PULMONALE Status: Acute Priority: High Current Visit: Yes Qualifiers: Pulmonary embolism type: unspecified Chronicity: acute Acute cor pulmonale presence: unspecified Qualified Code(s): I26.99 - Other pulmonary embolism without acute cor pulmonale (4) Abdominal pain SNOMED Code(s): 64791811 ICD Code: R10.9 - UNSPECIFIED ABDOMINAL PAIN Status: Acute Priority: High Current Visit: Yes Qualifiers: Abdominal location: right upper quadrant Qualified Code(s): R10.11 - Right upper quadrant pain - Patient Summary/Data Hospital Course: Impression: Covid-19 PNA with hypoxia Failed OP supportive treatment Acute PEs Chronic Obesity Diabetes Mellitus II Plan: 2D echo re: RV strain Titrate O2, keep O2 sat 88-94%. Remdesivir Dexamethasone Zithromax/Rocephin ASA Lovenox Covid-19 daily labs Sliding scale insulin Pulmonary toilet 05/23/20 * Receiving Xarelto twice daily for PE * Has received 2 units of convalescent plasma * Currently receiving remdesivir and dexamethasone daily * Currently receiving Rocephin 2 g IV daily and Zithromax 500 mg daily * Continues on 5 L of oxygen per nasal cannula vital signs have otherwise been stable and she remains afebrile the past 24 hours. * Blood cultures are showing no growth after 2 days. * D-dimer 0.64 which is down from 0.68 * Incentive spirometer and flutter valve at the bedside. 05/24/20 * Xarelto to treat PE * Remdesivir and dexamethasone for the treatment of Covid * Rocephin and Zithromax daily to treat pneumonia * Currently on 2 L of oxygen per nasal cannula * D-dimer 0.47 which is down from 0.64, CRP 2.1 which is down from 3.4 05/25/20 * Currently on room air * Rocephin and Zithromax for pneumonia * Day 5 of remdesivir and dexamethasone * Incentive spirometry and flutter valve * Blood cultures continue to show no growth * Up independently in her room with increased activity encouraged - Plan Plan:: Covid-19 PNA complicated by PEs, continue AC. Will need coupon for Xarelto at [place]. Will request PCP follow up at [facility]. Additionally patient also has a healthcare provider in [place]. 05/24/20 * Continue Xarelto * Continue remdesivir and dexamethasone * Continue Rocephin and Zithromax * Encourage increased activity independently in her room * Incentive spirometer and flutter valve every 1 hour while awake * Respiratory care to continue titrating oxygen * Accu-Cheks 4 times daily before meals and at bedtime with sliding scale coverage * Repeat labs in the a.m. * Plan for discharge once patient has received 5 days of remdesivir and is titrated to room air. 05/25/20 * Continue Xarelto * Today is the final day of remdesivir. Continue dexamethasone x10 full day course * Continue increasing activity in the room * Incentive spirometer and flutter valve every 1 hour while awake * Will repeat lab work tomorrow morning * Will plan for discharge to home tomorrow morning. She will need to be continued on Xarelto for current diagnosis of PE. 05/26/20 * Patient is on room air and is ready for discharge to home. * Will discontinue dexamethasone as lungs are clear and patient's blood sugars have elevated significantly while on this. * She will resume her home Metformin. * Continue incentive spirometer at home and flutter valve * Will need to continue taking Xarelto 15 mg twice daily through 12 June for pulmonary embolus, at that time Dr. Harris will have to change the dose. * Follow-up with Dr. Harris in 1 week of discharge. - Patient Instructions Diet: Diabetic Diet Activity: As Tolerated Notify Provider of: Fever Other/Special Instructions: Continue taking Xarelto twice daily through June 12. Then follow up with Dr Harris regarding a change in the dosage of the medications. This medication is for the blood clot in your lungs. Cannot return to work until after follow up with Dr. Harris. Follow up with Dr. Harris in one week of discharge from the hospital. Continue using incentive spirometer and flutter valve. - Discharge Plan *PRESCRIPTION DRUG MONITORING PROGRAM REVIEWED*: Not Applicable *COPY OF PRESCRIPTION DRUG MONITORING REPORT IN PATIENT NIDIA: Not Applicable Prescriptions/Med Rec: Rivaroxaban [Xarelto] 15 mg PO BID #36 tablet Home Medications: Home Meds metFORMIN [Glucophage] 500 mg PO DAILY 05/21/20 [History] Rivaroxaban [Xarelto] 15 mg PO BID #36 tablet 05/26/20 [Rx] Patient Handouts: COVID-19 Frequently Asked Questions, COVID-19, Rivaroxaban oral tablets, Pulmonary Embolism, COVID-19: How to Protect Yourself and Others - CDC, Coronavirus Information 09/28/19, Prevent the Spread of COVID-19 if You Are Sick - CDC, Sepsis, Self Care, Adult Forms: ED Department Discharge Referrals: Arielle Harris MD [Physician] - - Discharge Summary/Plan Comment DC Time >30 min.: No - General Info Date of Service: 05/26/20 Admission Dx/Problem (Free Text: Admission Diagnosis/Problem Admission Diagnosis/Problem Pneumonia Subjective Update: Feels better. States she is ready to be discharged home. Functional Status: Reports: Pain Controlled, Tolerating Diet, Ambulating, Urinating, Incentive Spirometry - Review of Systems General: Reports: No Symptoms HEENT: Reports: Glasses Pulmonary: Reports: No Symptoms Cardiovascular: Reports: No Symptoms Gastrointestinal: Reports: No Symptoms Genitourinary: Reports: No Symptoms Musculoskeletal: Reports: No Symptoms Skin: Reports: No Symptoms Neurological: Reports: No Symptoms Psychiatric: Reports: No Symptoms - Patient Data Vitals - Most Recent: Last Vital Signs Temp 97.5 F 05/26/20 07:46 Pulse 79 05/26/20 07:46 Resp 24 H 05/26/20 07:46 BP 101/46 L 05/26/20 07:46 Pulse Ox 99 05/26/20 07:46 Weight - Most Recent: 260 lb 1.6 oz I&O - Last 24 hours: Intake & Output 05/25/20 05/26/20 05/26/20 22:59 06:59 14:59 Intake Total 700 100 Output Total 600 900 Balance 100 -800 Lab Results - Last 24 hrs: Laboratory Results - last 24 hr 05/25/20 05/25/20 05/25/20 Range/Units 11:33 16:26 22:10 WBC (3.98-10.04) K/mm3 RBC (3.98-5.22) M/mm3 Hgb (11.2-15.7) gm/dl Hct (34.1-44.9) % MCV (79.4-94.8) fl MCH (25.6-32.2) pg MCHC (32.2-35.5) g/dl RDW Std Deviation (36.4-46.3) fL Plt Count (182-369) K/mm3 MPV (9.4-12.3) fl Neut % (Auto) (34.0-71.1) % Lymph % (Auto) (19.3-51.7) % [place] % (Auto) (4.7-12.5) % Eos % (Auto) (0.7-5.8) Baso % (Auto) (0.1-1.2) % Neut # (Auto) (1.56-6.13) K/mm3 Lymph # (Auto) (1.18-3.74) K/mm3 [place] # (Auto) (0.24-0.36) K/mm3 Eos # (Auto) (0.04-0.36) K/mm3 Baso # (Auto) (0.01-0.08) K/mm3 Manual Slide Review D-Dimer, Quantitative (0.19-0.50) mg/L Sodium (136-145) mEq/L Potassium (3.5-5.1) mEq/L Chloride (98-107) mEq/L Carbon Dioxide (21-32) mEq/L Anion Gap (5-15) BUN (7-18) mg/dL Creatinine (0.55-1.02) mg/dL Est Cr Clr Drug Dosing mL/min Estimated GFR (MDRD) (>60) mL/min BUN/Creatinine Ratio (14-18) Glucose (74-106) mg/dL POC Glucose 160 H 234 H 202 H (70-105) mg/dL Calcium (8.5-10.1) mg/dL C-Reactive Protein (<1.0) mg/dL 05/26/20 05/26/20 05/26/20 Range/Units 04:47 04:47 04:47 WBC 10.68 H (3.98-10.04) K/mm3 RBC 5.11 (3.98-5.22) M/mm3 Hgb 14.0 (11.2-15.7) gm/dl Hct 43.5 (34.1-44.9) % MCV 85.1 (79.4-94.8) fl MCH 27.4 (25.6-32.2) pg MCHC 32.2 (32.2-35.5) g/dl RDW Std Deviation 40.8 (36.4-46.3) fL Plt Count 570 H (182-369) K/mm3 MPV 9.6 (9.4-12.3) fl Neut % (Auto) 72.6 H (34.0-71.1) % Lymph % (Auto) 17.9 L (19.3-51.7) % [place] % (Auto) 8.1 (4.7-12.5) % Eos % (Auto) 0.3 L (0.7-5.8) Baso % (Auto) 0.1 (0.1-1.2) % Neut # (Auto) 7.75 H (1.56-6.13) K/mm3 Lymph # (Auto) 1.91 (1.18-3.74) K/mm3 [place] # (Auto) 0.87 H (0.24-0.36) K/mm3 Eos # (Auto) 0.03 L (0.04-0.36) K/mm3 Baso # (Auto) 0.01 (0.01-0.08) K/mm3 Manual Slide Review Abnormal smear D-Dimer, Quantitative 0.30 (0.19-0.50) mg/L Sodium 141 (136-145) mEq/L Potassium 4.0 (3.5-5.1) mEq/L Chloride 105 (98-107) mEq/L Carbon Dioxide 22 (21-32) mEq/L Anion Gap 18.0 H (5-15) BUN 15 (7-18) mg/dL Creatinine 0.7 (0.55-1.02) mg/dL Est Cr Clr Drug Dosing 112.47 mL/min Estimated GFR (MDRD) > 60 (>60) mL/min BUN/Creatinine Ratio 21.4 H (14-18) Glucose 143 H (74-106) mg/dL POC Glucose (70-105) mg/dL Calcium 8.5 (8.5-10.1) mg/dL C-Reactive Protein 1.1 H* (<1.0) mg/dL 05/26/20 Range/Units 06:05 WBC (3.98-10.04) K/mm3 RBC (3.98-5.22) M/mm3 Hgb (11.2-15.7) gm/dl Hct (34.1-44.9) % MCV (79.4-94.8) fl MCH (25.6-32.2) pg MCHC (32.2-35.5) g/dl RDW Std Deviation (36.4-46.3) fL Plt Count (182-369) K/mm3 MPV (9.4-12.3) fl Neut % (Auto) (34.0-71.1) % Lymph % (Auto) (19.3-51.7) % [place] % (Auto) (4.7-12.5) % Eos % (Auto) (0.7-5.8) Baso % (Auto) (0.1-1.2) % Neut # (Auto) (1.56-6.13) K/mm3 Lymph # (Auto) (1.18-3.74) K/mm3 [place] # (Auto) (0.24-0.36) K/mm3 Eos # (Auto) (0.04-0.36) K/mm3 Baso # (Auto) (0.01-0.08) K/mm3 Manual Slide Review D-Dimer, Quantitative (0.19-0.50) mg/L Sodium (136-145) mEq/L Potassium (3.5-5.1) mEq/L Chloride (98-107) mEq/L Carbon Dioxide (21-32) mEq/L Anion Gap (5-15) BUN (7-18) mg/dL Creatinine (0.55-1.02) mg/dL Est Cr Clr Drug Dosing mL/min Estimated GFR (MDRD) (>60) mL/min BUN/Creatinine Ratio (14-18) Glucose (74-106) mg/dL POC Glucose 143 H (70-105) mg/dL Calcium (8.5-10.1) mg/dL C-Reactive Protein (<1.0) mg/dL IZA Results - Last 24 hrs: Microbiology 05/21/20 05:30 Aerobic Blood Culture - Preliminary Blood - Venous - Lab Draw NO GROWTH AFTER 5 DAYS Anaerobic Blood Culture - Preliminary NO GROWTH AFTER 5 DAYS 05/21/20 05:30 Aerobic Blood Culture - Preliminary Blood - Venous NO GROWTH AFTER 5 DAYS Anaerobic Blood Culture - Preliminary NO GROWTH AFTER 5 DAYS Med Orders - Current: Current Medications Albuterol (Proventil Hfa) 0 gm INH Q2H PRN PRN Reason: SOB/WHEEZE Last Admin: 05/24/20 21:05 Dose: 2 puff Documented by: Aspirin (Halfprin) 81 mg PO DAILY [facility] Last Admin: 05/26/20 09:06 Dose: 81 mg Documented by: Dexamethasone (Dexamethasone) 6 mg PO DAILY [facility] Stop: 05/30/20 09:01 Last Admin: 05/26/20 09:06 Dose: 6 mg Documented by: Insulin Human Regular (Humulin R) 0 unit SUBCUT QIDACANDBED [facility]; Protocol Last Admin: 05/26/20 06:14 Dose: Not Given Documented by: Rivaroxaban (Xarelto) 15 mg PO BID [facility] Last Admin: 05/26/20 09:06 Dose: 15 mg Documented by: Sodium Chloride (Saline Flush) 10 ml FLUSH ONETIME PRN PRN Reason: Keep Vein Open Last Admin: 05/21/20 07:41 Dose: 10 ml Documented by: Discontinued Medications Dexamethasone (Dexamethasone) 6 mg IV ONETIME [facility] Stop: 05/21/20 06:50 Last Admin: 05/21/20 07:17 Dose: 6 mg Documented by: Sodium Chloride (Normal Saline) 1,000 mls @ 75 mls/hr IV ASDIRECTED [facility] Last Admin: 05/21/20 07:50 Dose: 75 mls/hr Documented by: Sodium Chloride (Normal Saline) 45 mls @ 40 mls/hr IV ASDIRECTED [facility] Last Admin: 05/21/20 07:41 Dose: 40 mls/hr Documented by: Remdesivir 200 mg/ Sodium (Chloride) 250 mls @ 250 mls/hr IV ONETIME ONE Stop: 05/21/20 09:59 Last Admin: 05/21/20 09:05 Dose: 250 mls/hr Documented by: Remdesivir 100 mg/ Sodium (Chloride) 100 mls @ 100 mls/hr IV Q24H [facility] Stop: 05/25/20 10:59 Last Admin: 05/25/20 09:17 Dose: 100 mls/hr Documented by: Azithromycin 500 mg/ Sodium (Chloride) 250 mls @ 250 mls/hr IV Q24H [facility] Stop: 05/23/20 17:59 Last Admin: 05/23/20 17:11 Dose: 250 mls/hr Documented by: Ceftriaxone Sodium 2 gm/ (Sodium Chloride) 100 mls @ 200 mls/hr IV Q24H [facility] Stop: 05/25/20 18:29 Last Admin: 05/25/20 17:08 Dose: 200 mls/hr Documented by: Insulin Human Regular (Humulin R) 0 unit SUBCUT [facility]; Protocol Last Admin: 05/22/20 10:06 Dose: Not Given Documented by: Iopamidol (Isovue-300 (61%)) 100 ml IVPUSH ONETIME ONE Stop: 05/21/20 07:07 Last Admin: 05/21/20 07:41 Dose: Not Given Documented by: Iopamidol (Isovue-370 (76%)) 100 ml IVPUSH ONETIME ONE Stop: 05/21/20 07:43 Last Admin: 05/21/20 07:44 Dose: 100 ml Documented by: Potassium Chloride (Klor-Con M20) 40 meq PO ONETIME ONE Stop: 05/25/20 08:01 Last Admin: 05/25/20 09:13 Dose: 40 meq Documented by: Rivaroxaban (Xarelto) 15 mg PO ONETIME STA Stop: 05/21/20 08:24 Last Admin: 05/21/20 08:36 Dose: 15 mg Documented by: [facility] Last Admin: 05/22/20 17:10 Dose: 15 mg Documented by: - Exam Quality Assessment: Reports: DVT Prophylaxis (Xarelto). Denies: Supplemental Oxygen General: Reports: Alert, Oriented, Cooperative, No Acute Distress HEENT: Reports: Pupils Equal, Pupils Reactive, Mucous Membr. Moist/[place] Neck: Reports: Supple, Trachea Midline. Denies: Lymphadenopathy Lungs: Reports: Clear to Auscultation, Normal Respiratory Effort Cardiovascular: Reports: Regular Rate, Regular Rhythm, No Murmurs GI/Abdominal Exam: Normal Bowel Sounds, Soft, Non-Tender, No Distention (Female) Exam: Deferred Rectal (Female) Exam: Deferred Back Exam: Reports: Normal Inspection, Full Range of Motion Extremities: Normal Inspection, Normal Range of Motion, Non-Tender, No Pedal Edema, Normal Capillary Refill Skin: Reports: Warm, Dry, Intact Neurological: Reports: No New Focal Deficit Psy/Mental Status: Reports: Alert, Normal Affect, Normal Mood
[2020-05-26 14:47] VITALS: BP 127/89; PULSE 72
== END 2020-05-26 12:28 | disposition home or self-care (01) | DRG 137 ==
LOC: JD.ED 04:38 → JD.MS 13:47
PROVIDERS: ADMIT Internal Medicine Cardiovascular Disease; ATTEND Internal Medicine Cardiovascular Disease
PROC: XW033E5 Introduction of Remdesivir Anti-infective into Peripheral Vein, Percutaneous Approach, New Technology Group 5 (ICD-10-PCS; principal; 2020-05-21)
PROC: 8E0ZXY6 Isolation (ICD-10-PCS; 2020-05-21)
PROC: XW13325 Transfusion of Convalescent Plasma (Nonautologous) into Peripheral Vein, Percutaneous Approach, New Technology Group 5 (ICD-10-PCS; 2020-05-21)
DX: U07.1 COVID-19 (principal); J12.89 Other viral pneumonia; I26.99 Other pulmonary embolism without acute cor pulmonale; E11.65 Type 2 diabetes mellitus with hyperglycemia; R09.02 Hypoxemia; E66.9 Obesity, unspecified; H54.7 Unspecified visual loss; N20.0 Calculus of kidney; R79.1 Abnormal coagulation profile; Z96.698 Presence of other orthopedic joint implants; Z68.41 Body mass index [BMI] 40.0-44.9, adult; Z79.4 Long term (current) use of insulin; Z99.81 Dependence on supplemental oxygen; Z79.01 Long term (current) use of anticoagulants
CPT/HCPCS: 36415; 36430; 36600; 71046; 71046-26; 71275; 71275-26; 80048; 80053; 82803; 82962; 83605; 83735; 84450; 84460; 84484; 85007; 85025; 85027; 85379; 86140; 86900; 86901; 87040; 87804; 93005; 93010; 93306; 94640; 94667; 94668; 94760; 94761; 94762; 96365; 96375; 99222; 99232; 99238; 99284; 99285-25; A9270-GY; J0456; J0696; J1100; J1815-GY; J7030; J7050; J8540; P9017; Q9967

== ENCOUNTER 2024-01-07 02:58 | Emergency (ER) | payer BC ==
[2024-01-07 03:28] LABS: APPEARANCE,URINE CLEAR (Clear); BILIRUBIN,URINE 1+ (Negative); COLOR,URINE YELLOW (Yellow); GLUCOSE,URINE NEGATIVE (Negative); KETONES,URINE TRACE (Negative); LEUKOCYTE ESTERASE,URINE NEGATIVE (Negative); NITRITE,URINE NEGATIVE (Negative); OCCULT BLOOD,URINE 3+ (Negative); PH,URINE 5.5 (5.0-8.0); PROTEIN,URINE 2+ (Negative)
[2024-01-07 03:40] LABS: BACTERIA,URINE FEW /hpf (FEW); EPITHELIAL CELLS,URINE 0-5 /hpf (0-5); MUCUS,URINE NOT SEEN /hpf (FEW); RBC,URINE 30-40 /hpf (0-5); WBC,URINE 0-5 /hpf (0-5)
[2024-01-07 04:02] LABS: BASOPHILS ABSOLUTE AUTO 0.1 K/mm3 (0.0-0.2); BASOPHILS PERCENT AUTO 0.6 % (0.0-1.0); EOSINOPHILS ABSOLUTE AUTO 0.4 K/mm3 (0.0-0.4); EOSINOPHILS PERCENT AUTO 4.6 % (0.0-6.0); HEMOGLOBIN 14.1 gm/dl (12.0-16.0); IMMATURE GRAN ABSOLUTE AUTO 0.03 K/mm3 (0.00-0.05); IMMATURE GRAN PERCENT AUTO 0.4 % (0.0-0.4); LYMPHOCYTES ABSOLUTE AUTO 2.1 K/mm3 (1.0-4.8); LYMPHOCYTES PERCENT AUTO 25.1 % (24.0-44.0); MEAN CORPUSCULAR HEMOGLOBIN 28.2 pg (28.0-32.0); MEAN CORPUSCULAR HGB CONC 33.6 g/dl (32.0-36.0); MEAN PLATELET VOLUME 9.5 fl (9.4-12.3); MONOCYTES ABSOLUTE AUTO 0.6 K/mm3 (0.0-0.8); MONOCYTES PERCENT AUTO 7.4 % (0.0-8.0); NEUTROPHILS ABSOLUTE AUTO 5.1 K/mm3 (1.8-7.7); NEUTROPHILS PERCENT AUTO 61.9 % (41.0-71.0); PLATELET COUNT,PLT 285 K/mm3 (150-400); WHITE BLOOD CELL COUNT,WBC 8.26 K/mm3 (3.9-11.3)
[2024-01-07 04:14] LABS: ALBUMIN 3.4 g/dl (3.4-5.0); ANION GAP 14.6 (5-15); BILIRUBIN TOTAL 0.5 mg/dL (0.2-1.0); BUN/CREATININE RATIO 14.3 (14-18); CALCIUM 8.5 mg/dL (8.5-10.1); CREATININE 0.7 mg/dL (0.55-1.02); EST CRCL DRUG DOSING (CG) 108.63 mL/min; MAGNESIUM 1.7 mg/dL (1.8-2.4); POTASSIUM,K 3.6 mEq/L (3.5-5.1); PROTEIN TOTAL,TP 6.7 g/dl (6.4-8.2)
[2024-01-07] MEDS: Iopamidol 612 MG/ML 100 ML Bottle IVPUSH ONE (04:51)
[2024-01-07 05:55] VITALS: BP 120/76; PULSE 92
== END 2024-01-07 05:55 | disposition home or self-care (01) ==
LOC: JD.ED 02:58
DX: R10.2 Pelvic and perineal pain (principal); R31.9 Hematuria, unspecified; N21.0 Calculus in bladder; E66.9 Obesity, unspecified; Z79.899 Other long term (current) drug therapy; Z68.38 Body mass index [BMI] 38.0-38.9, adult
CPT/HCPCS: 36415; 74177; 80053; 81001; 83735; 84703; 85025; 86140; 99284; Q9967